=== PATIENT | male | born 1960 | race Caucasian/White ===

== ENCOUNTER 2022-02-26 08:23 | Day surgery (SDC) | payer MEDICARE, MEDICAID, SELFPAY ==
[2022-02-26] VITALS (9 sets, daily range): BP systolic 125–159; BP diastolic 58–98; PULSE 50–71; RESP 12–18; TEMP 36.1–36.9; O2SAT 95–99; BMI 22.3
[2022-02-26] MEDS: Lactated Ringers 1,000 ML 80 ML IV (09:50)
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
--- NOTE | 2022-02-26 11:14 | W.PM.DSUDISC ---
Discharge Plan Disposition Patient Disposition: HOME Condition: Good Discharge Details Reason For Visit: septoturbinatoplasty Attending Provider: Biju Torres Primary Care Provider: SOPHIA GUSTAFSON Home Meds and New Rx's Prescriptions: New cephalexin 500 mg capsule 500 mg PO TID Qty: 15 0RF No Action tamsulosin [Flomax] 0.4 mg capsule 0.4 mg PO QHS gabapentin 300 mg capsule 300 mg PO QHS Rx Instructions: Take 1 to 3 capsules by mouth every night. fluorouracil 5 % cream 1 applic topical BID losartan 50 mg tablet 50 mg PO DAILY tqczvkysgt-pjofskzxgdkxe-jgqx [Fioricet] 50-300-40 mg capsule 1 cap PO Q4H PRN azelastine-fluticasone [Dymista] 137-50 mcg/spray spray,non-aerosol 1 spray intranasal BID Rx Instructions: administer into each nostril tizanidine 4 mg capsule 4 mg PO BID PRN Discharge Instructions Additional Instructions: My cell phone number is [phone] should there be any concerns or problems Stand Alone Forms: [facility] Referrals: Biju Torres MD [ [facility] STAFF PHYSICIAN] - ( of this week, please call for appointment prior to patient's departure) Diet:: As Tolerated
[2022-02-26] MEDS: ceFAZolin 2 GM/50 ML BAG IVPB (11:25)
[2022-02-26] MEDS: Cocaine Nasal 4% 4 ML BTL (11:40)
--- NOTE | 2022-02-26 12:03 | NASSEP_PTH ---
PATIENT: Geraldo Hennessy LOC: [facility] U#:[id number] AGE/SX: 61/M ROOM: RE02/26/[address]: Biju Torres MD : 1960 BED: DIS: 02/26/2022 SPEC #: [id number] RECD: 02/26/22 13:29 STATUS: TOMAS REQ #: [id number] EUSEBIO: 02/26/22 12:[address]: Biju Torres DEPT: Surgical Specimen RECD BY: Paula Avendano ENTERED: 02/26/22 13:30 SP TYPE: NASSEP OTHR DR: SOPHIA GUSTAFSON NP Tissues: 1 - NASAL SEPTUM Procedures: GROSS LEVEL 1 Comments: [id number]
[2022-02-26] MEDS: Lidocaine 1.5 % Pres-Free W/EPI 1/200,000 30 ML VIAL (12:10)
[2022-02-26] MEDS: Bacitracin 30 GM TUBE (12:11)
--- NOTE | 2022-02-26 12:16 | W.PM.OP ---
Operative Note Operative Note DATE OF PROCEDURE: 02/26/22 PRE-OP DIAGNOSIS: Chronic nasal obstruction, DNS, inferior turbinate hypertrophy POST-OP DIAGNOSIS: same PROCEDURE: Septoplasty, bilateral inferior turbinate reduction using cautery SURGEON: Biju Torres ANESTHESIA TYPE: General LMA/ETT Refer to Anesthesia Record ESTIMATED BLOOD LOSS: 25 PATHOLOGY: other (Septal cartilage) COMPLICATIONS: None Patient was transported to: PACU Patient's condition: stable Implants: Thayer splints Indications: The patient has had chronic nasal obstruction that is medically recalcitrant. Preoperative exam revealed a massively deviated nasal septum anteriorly resulting in near-total obstruction of the left nasal vault. He had inferior turbinate hypertrophy. Options were explained to the patient regarding further management. He elected to undergo the above procedure. Risks and benefits as well as the operative and postoperative courses were detailed. Preoperative H&P was reviewed and no changes were noted. Consent was reviewed Findings: Deviated nasal septum confined to the cartilaginous septum, mucosal and submucosal inferior turbinate hypertrophy, Procedure Description: After obtaining an adequate level of general endotracheal anesthesia the patient was positioned in a supine position and prepped and draped in appropriate fashion. 1.5% lidocaine with 1/200,000 epinephrine was injected the septum in the submucosal plane bilaterally. Cocaine soaked nasal pledgets were then placed along the inferior turbinates bilaterally. 5 minutes was allowed to elapse and then a left-sided hemitransfixion incision was made. Submucoperichondrial planes were developed along the left as well as subperiosteal planes. A [place] knife was then used to penetrate the quadrangular cartilage anteriorly leaving a strong dorsal and columellar strut. Submucoperichondrial planes were then developed on the opposite side revealing that the deviation appeared to be limited to the anterior septum. As such the subperiosteal planes were not developed along the opposite side. A swivel knife was used to remove the deviated quadrangular cartilage and then a small remnant of quadrangular cartilage along the floor was removed carefully taking care to avoid trauma to the mucosa along the septum. Once been removed, the septum was found to be nicely medialized with no significant residual deviation. The Bailey elevator could be passed freely through both nostrils into the nasopharynx. Because the inferior turbinates appear to have a purely mucosal hypertrophy, the decision was made to cauterize the inferior third of the turbinates bilaterally. This resulted in further improvement of the nasal airway bilaterally. The Bailey elevator was used to lateralize the residual turbinate bilaterally. The nasal tip was stable. As such, a 4-0 chromic was used to approximate the edges of the hemitransfixion incision and a small drain hole was made in the left-sided posterior mucosa to allow any blood to escape. Thayer splints were sutured into place using a 2-0 Prolene suture. Care was taken not to tighten the septum suture too much. Merocel packs were placed along the inferior turbinates and insufflated. The patient was then awakened and extubated by anesthesia and the packs were removed. The patient was then transported to recovery room in stable condition. I was present throughout the entire case.
[2022-02-26] MEDS: fentaNYL 100 MCG/2 ML VIAL IVP (12:47)
[2022-02-26] MEDS: Ibuprofen 600 MG TAB PO (13:34)
--- NOTE | 2022-02-26 15:17 | W.ANESPOSTOP ---
Postoperative Evaluation Date, Time and Location Date Performed: 02/26/22 Time Performed: 14:15 Patient Location: Day Surgery Unit Vital Signs Most Recent Imported Vital Signs: Most Recent Vital Signs Temp Pulse Resp BP Pulse Ox 36.1 C L 51 L 18 141/97 H 96 02/26/22 13:25 02/26/22 13:40 02/26/22 13:40 02/26/22 13:40 02/26/22 13:40 Pain Score Most Recent Pain Score: Most Recent Pain Score Pain Level 7 02/26/22 13:40 Assessment Mental Status: Awake (Alert & Oriented to Patient Baseline) Airway and Respiratory Function: Patent airway with normal (patient baseline) respiratory exam Cardiovascular Function: Hemodynamically Stable Hydration Status: Adequately Hydrated Nausea & Vomiting: No Nausea or Vomiting Pain: Pain is tolerable per patient Peripheral Nerve Block: Patient did not receive a nerve block
== END 2022-02-26 14:48 | disposition home or self-care (01) ==
PROVIDERS: PCP Nurse Practitioner Family; Visit Provider Otolaryngology
PROC: (CPT 30520; principal; 2022-02-26 11:00)
DX: J34.2 Deviated nasal septum (principal); I10 Essential (primary) hypertension; R51.9 Headache, unspecified; J34.3 Hypertrophy of nasal turbinates
CPT/HCPCS: 30520; 30801; 88300; J0690; J1100; J2405; J2704; J3010

== ENCOUNTER 2022-06-04 08:02 | Day surgery (SDC) | payer MEDICARE, MEDICAID, SELFPAY ==
[2022-06-04] VITALS (8 sets, daily range): BP systolic 98–158; BP diastolic 64–99; PULSE 60–81; RESP 14–18; TEMP 36.2–36.7; O2SAT 95–98; BMI 22.2
[2022-06-04] MEDS: Lactated Ringers 1,000 ML 80 ML IV (08:55)
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
--- NOTE | 2022-06-04 09:50 | PDOC.DSDIS_ITS ---
Date of service: 06/04/22 Time of Service: 09:51 Discharge Plan Disposition Patient Disposition: Home Condition: Good Discharge Details Reason For Visit: Microlaryngoscopy with biopsy Attending Provider: Biju Torres Primary Care Provider: SOPHIA GUSTAFSON Home Meds and New Rx's Prescriptions: New omeprazole 20 mg capsule,delayed release(DR/EC) 20 mg PO DAILY Qty: 14 0RF No Action gabapentin 300 mg capsule 300 mg PO QHS Rx Instructions: Take 1 to 3 capsules by mouth every night. fluorouracil 5 % cream 1 applic topical BID losartan 50 mg tablet 50 mg PO DAILY azelastine-fluticasone [Dymista] 137-50 mcg/spray spray,non-aerosol 1 spray intranasal BID Rx Instructions: administer into each nostril rosuvastatin 5 mg tablet 5 mg PO HS tamsulosin [Flomax] 0.4 mg capsule 0.8 mg PO QHS Discharge Instructions Additional Instructions: No smoking Avoid whispering, shouting, or excessive voice use. Avoid clearing your throat Take Prilosec as directed Ibuprofen or/and Tylenol for pain control My cell phone number is [phone]. Please call with any questions or concerns. If you are unable to reach me and you feel this is an emergency, please proceed to the emergency room Referrals: Biju Torres MD [ [facility] STAFF PHYSICIAN] - Activity:: Avoid vocal strain, maintain good hydration Diet:: As Tolerated
--- NOTE | 2022-06-04 10:48 | VOCCOR_PTH ---
PATIENT: Geraldo Hennessy LOC: [facility] U#:[id number] AGE/SX: 61/M ROOM: RE06/04/[address]: Biju Torres MD : 1960 BED: DIS: 06/04/2022 SPEC #: [id number] RECD: 06/04/22 12:49 STATUS: TOMAS REQ #: [id number] EUSEBIO: 06/04/22 10:[address]: Biju Torres DEPT: Surgical Specimen RECD BY: Paula Avendano ENTERED: 06/04/22 12:51 SP TYPE: VOCCOR OTHR DR: SOPHIA GUSTAFSON NP Tissues: 1 - VOCAL CORD Procedures: GROSS AND MICRO LEVEL 4 Comments: [id number]
--- NOTE | 2022-06-04 10:51 | W.PM.OP ---
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 This has failed to respond to maximal medical therapy. Options were explained to the patient regarding further management. He elected to undergo the above procedure. Consent was filled and signed prior to surgery. Findings: Right true vocal cord is unremarkable. Left true vocal cord reveals a small area of leukoplakia that under the microscope appears to be more scar tissue than anything else. This is mid cord and on the medial aspect. No other lesions are noted. Procedure Description: The patient was positioned in a supine position and prepped and draped in appropriate fashion. A dental guard was placed along the upper dentition to protect the dentition and then after obtaining an adequate level of general endotracheal anesthesia a rigid laryngoscope was advanced into the oral cavity, into the oropharynx, into the laryngeal inlet, and to the level at which time the vocal cords could be identified and examined. The operating microscope was then moved into position using a 400 mm lens. Using the operating microscope, the left and right cords were examined revealing no friable tissues, and no discrete masses, but there did appear to be an area of scar tissue along the left medial vocal cord. This was mid cord, and measured approximately 2 mm x 2 mm. Upgoingcup forceps were used to take a small biopsy taking care to limit the biopsy to the mucosa. Bleeding was minimal and self-limited. Specimen was placed in formalin and sent to pathology. After ensuring adequate hemostasis, and no other masses present or present, the laryngoscope was relaxed of suspension, and removed. Dentition was checked revealing no damage to the dentition or to the lips. The patient was then awakened and by anesthesia and taken to recovery room in stable condition. I was present throughout the entire case
--- NOTE | 2022-06-04 11:39 | W.ANESPOSTOP ---
Postoperative Evaluation Date, Time and Location Date Performed: 06/04/22 Time Performed: 11:39 Patient Location: Day Surgery Unit Vital Signs Most Recent Imported Vital Signs: Most Recent Vital Signs Temp Pulse Resp BP Pulse Ox 36.5 C 74 18 126/90 95 06/04/22 11:25 06/04/22 11:35 06/04/22 11:35 06/04/22 11:35 06/04/22 11:35 Pain Score Most Recent Pain Score: Most Recent Pain Score Pain Level 0 06/04/22 11:35 Assessment Mental Status: Awake (Alert & Oriented to Patient Baseline) Airway and Respiratory Function: Patent airway with normal (patient baseline) respiratory exam Cardiovascular Function: Hemodynamically Stable Hydration Status: Adequately Hydrated Nausea & Vomiting: No Nausea or Vomiting Pain: Pt. Denies Any Pain Peripheral Nerve Block: Patient did not receive a nerve block Postoperative Comments:: Patient reports itchy sensation in throat. Denies pain, denies nausea. Denies questions for anesthesia.
== END 2022-06-04 12:36 | disposition home or self-care (01) ==
PROVIDERS: PCP Nurse Practitioner Family; Visit Provider Otolaryngology
PROC: 0CJS8ZZ Inspection of Larynx, Via Natural or Artificial Opening Endoscopic (ICD-10-PCS; CPT 31575; principal; 2022-06-04 09:15)
DX: J38.3 Other diseases of vocal cords (principal); R49.8 Other voice and resonance disorders; R09.81 Nasal congestion
CPT/HCPCS: 31536; 88305; J1100; J2250; J2405; J2704; J3010

== ENCOUNTER → 2022-06-06 13:07 | Outpatient (BNVA) | payer MEDICARE, MEDICAID, SELFPAY | PROVIDERS: PCP Nurse Practitioner Family; Referring Provider Nurse Practitioner Family; Visit Provider Nurse Practitioner Adult Health | DX: G47.00 Insomnia, unspecified (principal); Z87.820 Personal history of traumatic brain injury; F41.9 Anxiety disorder, unspecified; I10 Essential (primary) hypertension; Z87.891 Personal history of nicotine dependence; M54.2 Cervicalgia; G89.29 Other chronic pain; G43.109 Migraine with aura, not intractable, without status migrainosus | CPT/HCPCS: 99204; 99214 ==

== ENCOUNTER → 2022-06-12 10:53 | Outpatient (BNVA) | payer MEDICARE, MEDICAID, SELFPAY | PROVIDERS: PCP Nurse Practitioner Family; Referring Provider Nurse Practitioner Family; Visit Provider Nurse Practitioner Gerontology | DX: R39.89 Other symptoms and signs involving the genitourinary system (principal); R32 Unspecified urinary incontinence | CPT/HCPCS: 51798; 81003; 99214 ==

== ENCOUNTER → 2022-08-07 10:54 | Outpatient (BNVA) | payer MEDICARE, MEDICAID, SELFPAY | PROVIDERS: PCP Nurse Practitioner Family; Referring Provider Nurse Practitioner Family; Visit Provider Nurse Practitioner Adult Health | DX: G43.009 Migraine without aura, not intractable, without status migrainosus (principal); G47.00 Insomnia, unspecified; G89.29 Other chronic pain; Z87.820 Personal history of traumatic brain injury | CPT/HCPCS: 99213; 99214 ==

== ENCOUNTER 2022-08-31 00:27 | Outpatient (CLI) | payer MEDICARE, MEDICAID, SELFPAY ==
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
--- NOTE | 2022-08-31 07:30 | DI.MRI_ITS ---
Exam(s) MR CERVICAL SPINE WO EXAM: MR CERVICAL SPINE WO CLINICAL HISTORY: neck pain w/ rad down the right arm, S/p surg X 2,cervical radicular pain, TECHNIQUE: Multiplanar multisequence MRI of the cervical spine was performed without intravenous con trast. COMPARISON: No exams were available for comparison FINDINGS: BONES: Vertebral body heights are maintained. Alignment is normal. Bone marrow signal intensity is wi thin normal limits. CERVICAL CORD: Craniovertebral junction is unremarkable. The cervical cord is normal size and signal intensity. SOFT TISSUES: Unremarkable. C2-3: No disc herniation or bulge is identified. No evidence of neural foraminal narrowing. No signi ficant central canal stenosis C3-4: No disc herniation or bulge is identified. No evidence of neural foraminal narrowing. No signif icant central canal stenosis C4-5: Mild loss of disc height. Endplate osteophytes eccentric toward the right. Mild rightneural f oraminal narrowing. Moderate left no significant central canal stenosis C5-6: Bstl-kg-ybyljyhp loss of disc height. Disc osteophytes causing moderate right neural foraminal encroachment. Moderate left neural foraminal narrowing. Mild central canal stenosis C6-7: Moderate loss of disc height. Endplate osteophytes eccentric toward the right severe right madhu ral foraminal narrowing. Moderate left neural foraminal narrowing no significant central canal steno sis C7-T1: No disc herniation or bulge is identified. No evidence of neural foraminal narrowing. No signi ficant central canal stenosis IMPRESSION: Degenerative disc changes from C4-5 through C6-7. Bilateral neural foraminal narrowing, greatest at C6-7 on the right. DATA REPOSITORY:
== END 2022-08-31 00:47 ==
LOC: DI 00:31
PROVIDERS: PCP Nurse Practitioner Family; Visit Provider Preventive Medicine Occupational Medicine
DX: M54.12 Radiculopathy, cervical region (principal); M25.559 Pain in unspecified hip; M18.0 Bilateral primary osteoarthritis of first carpometacarpal joints
CPT/HCPCS: 73521; 72141

== ENCOUNTER 2022-10-02 17:47 | Outpatient (REF) | payer MEDICARE, MEDICAID, SELFPAY ==
[2022-10-02 17:24] LABS: Abs Immature Grans 0.06 10^3/uL (0.0-0.06); Absolute Basophil Count 0.03 10^3/uL (0.0-0.2); Absolute Eosinophil Count 0.15 10^3/uL (0.0-0.7); Absolute Lymphocyte Count 1.74 10^3/uL (1.2-3.4); Absolute Monocyte Count 0.49 10^3/uL (0.1-0.8); Absolute Neutrophil Count 4.67 10^3/uL (1.2-6.7); Basophils % 0.4; Eosinophils % 2.1; HCT 43.1 % (40.0-50.0); HGB 14.9 g/dL (13.5-17.5); Immature Grans % 0.8; Lymphocytes % 24.4; MCHC 34.6 % (32.0-36.0); MCV 93 fL (80-95); MPV 9.3 fL (8.0-11.0); Monocytes % 6.9; Neutrophils % 65.4; Platelet Count 306 10^3/uL (130-400); RBC 4.65 10^6/uL (4.36-5.78); RDW 12.7 % (11.8-14.1); RDW-SD 43.4 fL; WBC 7.14 10^3/uL (4.4-10.8)
[2022-10-02 17:30] LABS: ALT 30 U/L (16-63); AST 25 U/L (15-37); Albumin 4.1 g/dL (3.4-5.0); Alkaline Phosphatase 88 U/L (46-116); Anion Gap 8.5 mmol/L (3-11); BUN 18 mg/dL (7-18); Bilirubin, Total 0.3 mg/dL (0.2-1.0); CO2 27.5 mmol/L (21.0-32.0); CREATININE 1.1 mg/dL (0.70-1.30); Calcium 9.1 mg/dL (8.5-10.1); Calculated LDL 90 mg/dL (<100); Chloride 104 mmol/L (98-107); Cholesterol 150 mg/dL (<200); Estimated GFR 77.33 (mL/min/1.73m2); Glucose 107 mg/dL (74-106); HDL Cholesterol 53 mg/dL (40-60); Potassium 4.2 mmol/L (3.5-5.1); Sodium 140 mmol/L (136-145); Total Protein 7.9 g/dL (6.4-8.2); Triglyceride 35 mg/dL (<150)
== END 2022-10-02 17:48 | disposition home or self-care (01) ==
LOC: NCHCN 17:47
PROVIDERS: PCP Nurse Practitioner Family; Visit Provider Nurse Practitioner Family
DX: I10 Essential (primary) hypertension (principal); E78.5 Hyperlipidemia, unspecified; G47.20 Circadian rhythm sleep disorder, unspecified type
CPT/HCPCS: 80053; 80061; 85025

== ENCOUNTER 2022-10-10 10:50 | Outpatient (CLI) | payer MEDICARE, MEDICAID, SELFPAY ==
--- NOTE | 2022-10-10 06:00 | DI.RAD_ITS ---
Exam(s) XR PAIN CLINIC SACRIOILIAC 2V EXAM: XR PAIN CLINIC SACRIOILIAC 2V CLINICAL HISTORY: Dx: Sacroiliac Joint Dysfunction TECHNIQUE: 2D and realtime digital imaging was performed. Radiologist not present. CONTRAST MATERIAL: None. COMPARISON: No exams were available for comparison FINDINGS: Fluoroscopy was provided for pain management therapy. Please refer to procedure report or details. Radiation Exposure Index: Ka,r=0.73 mGy IMPRESSION: As above. RADIATION DOSE DELIVERED:
[2022-10-10 11:04] VITALS: BP 142/92; PULSE 67; RESP 20; TEMP 37; O2SAT 97
[2022-10-10 11:44] VITALS: BP 134/92; PULSE 61; RESP 18; O2SAT 97
[2022-10-10] MEDS: methylPREDNISolone ACETATE 80 MG/ML VIAL IJ (11:54)
[2022-10-10] MEDS: Omnipaque 240 MG/ML 50 ML BTL IJ (11:54)
--- NOTE | 2022-10-10 15:03 | PDOC.PAIN_ITS ---
Date of service: 10/10/22 Time of Service: 11:45 Pain Managment Procedure Note Procedure Note Procedure Note: INTRA-ARTICULAR SI JOINT INJECTION Geraldo Hennessy has been referred to the [facility] for intra- articular SI joint injection. COMMENTS: I previously evaluated him in the office. Pre-procedure pain VAS was 6/10. Dx: Sacroiliac joint dysfunction Patient was interviewed and the medical record reviewed. There were no medical, pharmacologic, radiographic or other structural contraindications to attempting fluoroscopically guided intra-articular SI joint injection. Risks and expected side effects as well as potential benefit of the procedure were reviewed and voiced concerns addressed. The printed consent form was signed and witnessed. Standard time-out procedure was performed. Patient was placed in the prone position on the fluoroscopy table and automated blood pressure cuff and pulse oximeter applied. The skin entry point for approaching the left SI joint was identified under the most advantageous fluoroscopic view and marked. Following thorough Chlorhexadine preparation of the skin and draping and 1% lidocaine infiltration of the skin entry point and subcutaneous tissues, a 22 gauge spinal needle was placed under fluoroscopic guidance into the left SI joint was identified under the most advantageous fluoroscopic view and marked. Intra-articular placement was confirmed by a clear arthrogram resulting from the injection of 0.25ml Omnipaque 240, 40mg Depomedrol, followed by 1ml 1% lidocaine were injected intra-articularily with an initial reproduction of a significant component of the usual pain. Vital signs were stable throughout the procedure and were as recorded in the docflowsheet by the nursing staff. If given, dosages of intravenous drugs for anxiolysis and analgesia were documented in MAR. Follow up plans and appointments were discussed with the patient. Post procedure instruction was given as documented in nursing documentation and having met discharge criteria, and was discharged from the Pain Management Center. COMMENTS: Post-procedure pain VAS was 3/10. His groin pain was still present. Ezra Appiha DO, MPH [facility]-Pain Management [facility]-Center for Pain Management CC: SOPHIA GUSTAFSON NP
== END 2022-10-10 10:51 | disposition home or self-care (01) ==
PROVIDERS: PCP Nurse Practitioner Family; Visit Provider Preventive Medicine Occupational Medicine
DX: M46.1 Sacroiliitis, not elsewhere classified (principal); M54.50 Low back pain, unspecified
CPT/HCPCS: 27096; 72200; J1040; Q9967

== ENCOUNTER → 2022-11-06 10:21 | Outpatient (BNVA) | payer MEDICARE, MEDICAID, SELFPAY | PROVIDERS: PCP Nurse Practitioner Family; Referring Provider Nurse Practitioner Family; Visit Provider Nurse Practitioner Gerontology | DX: R33.9 Retention of urine, unspecified (principal) | CPT/HCPCS: 51798; 99213 ==

== ENCOUNTER → 2022-11-06 12:55 | Outpatient (BNVA) | payer MEDICARE, MEDICAID, SELFPAY | PROVIDERS: PCP Nurse Practitioner Family; Visit Provider Nurse Practitioner Adult Health | DX: G43.009 Migraine without aura, not intractable, without status migrainosus (principal); Z87.828 Personal history of other (healed) physical injury and trauma; G47.00 Insomnia, unspecified; F39 Unspecified mood [affective] disorder | CPT/HCPCS: 99213 ==

== ENCOUNTER 2022-12-12 12:02 | Outpatient (REF) | payer MEDICARE, MEDICAID, SELFPAY ==
[2022-12-12 14:55] LABS: Abs Immature Grans 0.04 10^3/uL (0.0-0.06); Absolute Basophil Count 0.04 10^3/uL (0.0-0.2); Absolute Eosinophil Count 0.12 10^3/uL (0.0-0.7); Absolute Lymphocyte Count 1.99 10^3/uL (1.2-3.4); Absolute Neutrophil Count 4.26 10^3/uL (1.2-6.7); Basophils % 0.6; Eosinophils % 1.8; HCT 45.9 % (40.0-50.0); HGB 15.6 g/dL (13.5-17.5); Immature Grans % 0.6; Lymphocytes % 29.1; MCH 31.7 pg (27.0-33.0); MCV 93 fL (80-95); MPV 9.4 fL (8.0-11.0); Monocytes % 5.8; Neutrophils % 62.1; Platelet Count 313 10^3/uL (130-400); RBC 4.92 10^6/uL (4.36-5.78); RDW 12.5 % (11.8-14.1); RDW-SD 43.1 fL; WBC 6.85 10^3/uL (4.4-10.8)
[2022-12-12 15:20] LABS: NT-proBNP 49 pg/mL (<300)
== END 2022-12-12 12:03 | disposition home or self-care (01) ==
LOC: NCHCN 12:02
PROVIDERS: PCP Nurse Practitioner Family; Visit Provider Family Medicine
DX: R06.02 Shortness of breath (principal)
CPT/HCPCS: 83880; 85025

== ENCOUNTER 2022-12-14 00:54 | Outpatient (CLI) | payer MEDICARE, MEDICAID, SELFPAY ==
--- NOTE | 2022-12-14 09:09 | DI.RAD_ITS ---
Exam(s) XR CHEST 2V PA LATERAL EXAM: XR CHEST 2V PA LATERAL CLINICAL HISTORY: SOB, R06.02 TECHNIQUE: 2D digital imaging was performed of the chest. Two images were obtained. PA and lateral views were obtained. COMPARISON: No exams were available for comparison FINDINGS: MEDIASTINUM: Normal. HEART: Normal. PULMONARY VASCULATURE: Normal. LUNGS: The lungs are hyperinflated suggesting underlying COPD. No focal consolidating infiltrates ar e seen. Mild chronic interstitial disease is present. PLEURAL SPACE: No pleural effusion or pneumothorax. BONE:Within normal limits for the patient's age. Postsurgical changes are seen in the left shoulder. There is an intramedullary calcific lesion in the proximal right humerus. It is most consistent wi th a benign lesion such as an enchondroma. OTHER FINDINGS:Normal. IMPRESSION: 1. No acute pulmonary findings. 2. Findings suggesting COPD and chronic interstitial disease. DATA REPOSITORY: RADIATION DOSE DELIVERED:
== END 2022-12-14 01:14 ==
LOC: DI 00:55
PROVIDERS: PCP Nurse Practitioner Family; Visit Provider Family Medicine
DX: R06.2 Wheezing (principal); J84.9 Interstitial pulmonary disease, unspecified; J44.9 Chronic obstructive pulmonary disease, unspecified
CPT/HCPCS: 71046

== ENCOUNTER 2022-12-24 03:03 | Outpatient (CLI) | payer MEDICARE, MEDICAID, SELFPAY ==
[2022-12-24] MEDS: Albuterol HFA 18 GM 200 PUFF INH IH (09:03)
[2022-12-24] MEDS: Inhaler, Assist Device 1 EACH MC (09:03)
--- NOTE | 2022-12-24 11:04 | W.PFT ---
Date of service: 12/24/22 Time of Service: 08:03 Pulmonary Function Test Result Indications: Dyspnea Interpretation Spirometry: There is no airflow limitation. No significant bronchodilator response. Lung Volumes: There is air trapping. Diffusion Capacity: Normal diffusion Airway Pressure: Normal airway pressure Impression There is air trapping but no airflow obstruction. This can be seen in asthma or emphysema. Clinical Correlation therefore is recommended.
== END 2022-12-24 03:04 | disposition home or self-care (01) ==
LOC: RT 03:03
PROVIDERS: PCP Nurse Practitioner Family; Visit Provider Family Medicine
DX: R06.02 Shortness of breath (principal)
CPT/HCPCS: 94060; 94726; 94729

== ENCOUNTER → 2022-12-27 00:32 | Outpatient (CLI) | payer MEDICARE, MEDICAID, SELFPAY ==
--- NOTE | 2022-12-27 06:00 | DI.MRI_ITS ---
Exam(s) MR PELVIS WO EXAM: MR PELVIS WO CLINICAL HISTORY: Left SI joint area pain after trauma,m53.3,si joint dysfunction TECHNIQUE: Multiplanar multisequence MRI of Pelvis was performed COMPARISON: CR XR HIP PELVIS ADULT BL from 08/31/2022 FINDINGS: Bones: There is no fracture. Mild marrow edema seen in the inferior aspect of the right iliac bone adjacent to the sacroiliac joint. Otherwise there is normal marrow signal. No suspicious bone marro w lesions. There are degenerative endplate signal changes seen at L4-5 and L5-S1. The SI joints and symphysis pubis are otherwise well maintained. Musculotendinous structures: Musculotendinous structures demonstrate no abnormality. Intrapelvic str uctures demonstrate no significant abnormality. IMPRESSION: 1. There is no evidence of an acute fracture. 2. Mild marrow edema seen at the inferior aspect of the right iliac bone adjacent to the sacroiliac j oint. This is nonspecific. This may be degenerative in nature. Contusion cannot be excluded. DATA REPOSITORY:
== END ==
PROVIDERS: PCP Nurse Practitioner Family; Visit Provider Preventive Medicine Occupational Medicine
DX: M53.3 Sacrococcygeal disorders, not elsewhere classified (principal)
CPT/HCPCS: 72195

== ENCOUNTER → 2023-01-23 10:03 | Outpatient (BNVA) | payer MEDICARE, MEDICAID, SELFPAY | PROVIDERS: PCP Nurse Practitioner Family; Referring Provider Nurse Practitioner Family; Visit Provider Nurse Practitioner Gerontology ==

== ENCOUNTER → 2023-01-25 00:46 | Outpatient (CLI) | payer MEDICARE, MEDICAID, SELFPAY ==
--- NOTE | 2023-01-25 07:55 | DI.CTLCSR_ITS ---
Exam(s) CT CHEST LUNG CANCER SCREEN EXAM: CT CHEST LUNG CANCER SCREEN CLINICAL HISTORY: HX TOBACCO USE Z87.891, SCREENING FOR LUNG CANCER TECHNIQUE: Imaging Protocol: Axial computed tomography images with coronal and sagittal reformatted images were created and reviewed COMPARISON: CR XR CHEST 2V PA LATERAL from 12/14/2022 FINDINGS: Tracheobronchial tree: Patent where visualized. Pulmonary parenchyma: Emphysematous changes are present in the lungs. No architectural distortion. Lung Nodules: There is a 5 mm nodule in the periphery of the left lower lobe. Mediastinum and Emilia: No dominant adenopathy or fluid collection. The esophagus is unremarkable. Thyroid gland: Unremarkable. Lymph nodes: Unremarkable. Pleura: No effusion or pneumothorax. Heart: The heart is not dilated. Mild coronary artery calcification is present. No pericardial effus ion. Aorta: Thoracic aorta non-dilated.Atherosclerosis. Upper abdomen: Unremarkable. Soft Tissues: Unremarkable. Bones: Within normal limits. Postsurgical changes are seen in the left scapula. IMPRESSION: 5 mm left lower lobe pulmonary nodule. Lung RADS Cat 3 - Probably Benign: Probably benign finding(s) - short term follow-up suggested; inclu de nodules with a low likelihood of becoming a clinically active cancer. Lung-RADS 1.0 CATEGORIES: Category 0 - Prior chest CT exam(s) being located for comparison. Category 1 - Annual screening in 12 months. No nodules or definitely benign nodules. Category 2 - Annual screening in 12 months. Benign appearance. Nodules with low likelihood of becomin g active cancer. Category 3 - 6-month follow-up. Probably benign. Short-term follow-up suggested. Nodules with low lik elihood of becoming active cancer. Category 4A - 3-month follow-up and CT/PET if >8 mm in size. Suspicious finding. Findings which requi re additional testing. Category 4B - Findings which require additional testing and tissue sampling. Suspicious finding. Category 4X - Category 3 or 4 nodules with additional features or imaging findings that increases the suspicion of malignancy. Modifier S- Potentially clinically significant finding. (Non lung cancer) RADIATION DOSE DELIVERED: 78.55mGy.cm Total DLP 78.55mGy.cmTotal DLP DATA REPOSITORY: All CT scans at this facility are submitted to the National Radiology Data Registry (NRDR) Dose Index Registry (DIR) with the [employer] (ACR). RADIATION OPTIMIZATION: All CT scans at this facility use at least one of these dose optimization te chniques: automated exposure control; mA and/or kV adjustment per patient size (includes targeted exa ms where dose is matched to clinical indication); or iterative reconstruction.
== END ==
PROVIDERS: PCP Nurse Practitioner Family; Visit Provider Nurse Practitioner Family
DX: Z87.891 Personal history of nicotine dependence (principal); Z12.2 Encounter for screening for malignant neoplasm of respiratory organs; R91.1 Solitary pulmonary nodule
CPT/HCPCS: 71271

== ENCOUNTER → 2023-02-05 09:58 | Outpatient (BNVA) | payer MEDICARE, MEDICAID, SELFPAY | PROVIDERS: PCP Nurse Practitioner Family; Visit Provider Nurse Practitioner Adult Health | DX: R51.9 Headache, unspecified (principal); G89.29 Other chronic pain | CPT/HCPCS: 64405 ==

== ENCOUNTER → 2023-02-13 08:36 | Outpatient (BNVA) | payer MEDICARE, MEDICAID, SELFPAY | PROVIDERS: PCP Nurse Practitioner Family; Referring Provider Nurse Practitioner Family; Visit Provider Surgery | DX: R19.8 Other specified symptoms and signs involving the digestive system and abdomen (principal) | CPT/HCPCS: 99213 ==

== ENCOUNTER 2023-02-22 02:01 | Outpatient (CLI) | payer MEDICARE, MEDICAID, SELFPAY ==
[2023-02-22 12:33] LABS: Ferritin 140 ng/mL (26-388)
== END 2023-02-22 02:02 | disposition home or self-care (01) ==
LOC: LOS 02:01
PROVIDERS: PCP Nurse Practitioner Family; Visit Provider Nurse Practitioner
DX: M25.562 Pain in left knee (principal); G47.33 Obstructive sleep apnea (adult) (pediatric); G47.00 Insomnia, unspecified; G25.81 Restless legs syndrome
CPT/HCPCS: 36415; 82728

== ENCOUNTER 2023-04-17 16:12 | Outpatient (CLI) | payer MEDICARE, MEDICAID, SELFPAY ==
[2023-04-17 16:25] VITALS: BP 121/79; PULSE 69; RESP 20; TEMP 36.3; O2SAT 97
[2023-04-17 17:21] VITALS: PULSE 65; O2SAT 98
[2023-04-17] MEDS: methylPREDNISolone ACETATE 40 MG/ML VIAL IJ (17:29)
[2023-04-17] MEDS: Lidocaine 2% Pres-Free 5 ML VIAL IJ (17:29)
--- NOTE | 2023-04-17 19:50 | PDOC.PAIN_ITS ---
Date of service: 04/17/23 Time of Service: 17:00 US Guided Injections Type of Ultrasound Guided Injection: Left Piriformis Injection Pre-Procedural Evaluation No skin issues over the procedure site Referral Patient has been referred to the Pain Management Center for Left Piriformis Injection for a chief complaint of Left buttock pain radiating into the left posterior thigh Pre-Procedural Pain Score Pre-procedural pain score: 7/10 Reason for Exam Left buttock pain Patient Interview Patient was interviewed and medical record reviewed: Yes There were no contraindications to performing an US guided procedure. Risks,expected side effects, potential benefits were reviewed. The patient consent form was signed and witnessed. Standard time out procedure was performed. Patient Safety No skin issues over the injection site Procedure Description No sedation given for procedure Patient was placed in the prone position and the following Pulse Ox applied. Pre-Procedure ultrasound scanning performed using a Linear 9 MHz probe Site Preparation Chloroprep Local Anesthesia of Lidocaine 2% (5 cc). A 21 G 3.5 Pajunk ultrasound needle was placed under live US guidance using an in-plane approach to the target area. After visualization of the needle tip at the target area 40 mg Depo-Medrol 40mg per cc were used. Negative aspiration for blood. [place] were removed without difficulty. Ultrasound images were captured and stored. Patient Mental Status Patient was alert during procedure Vital Signs Vital signs were stable throughout the procedure and recorded by nursing. Follow Up/Discharge Follow up plans and appointments were discussed with patient. Post procedure instruction was given as documented in nursing documentation. Discharge criteria met and patient discharged from Pain Management Center: Yes Post Procedure Pain Post Procedure Pain: 0/10 Patient tolerated procedure well Procedure Outcome: Successful Comments: He did have some left leg weakness and tingling as expected. He was escorted to his ride's vehicle in a wheelchair and was able to transfer to the wheelchair and out of the wheelchair. Piriformis Injection Non US Guided Injections Procedure Description Patient was placed in the prone position Post Procedure Pain Post Procedure Pain: 0/10
== END 2023-04-17 16:13 | disposition home or self-care (01) ==
LOC: PC 16:12
PROVIDERS: PCP Nurse Practitioner Family; Visit Provider Preventive Medicine Occupational Medicine
DX: M54.59 Other low back pain (principal); G57.02 Lesion of sciatic nerve, left lower limb
CPT/HCPCS: 00123; 20552; 76942; J1030

== ENCOUNTER → 2023-06-12 08:36 | Outpatient (BNVA) | payer MEDICARE, MEDICAID, SELFPAY | PROVIDERS: PCP Nurse Practitioner Family; Referring Provider Nurse Practitioner Family; Visit Provider Nurse Practitioner Gerontology | DX: N40.1 Benign prostatic hyperplasia with lower urinary tract symptoms (principal); N39.43 Post-void dribbling | CPT/HCPCS: 51798; 99213 ==

== ENCOUNTER → 2023-07-23 00:50 | Outpatient (CLI) | payer MEDICARE, MEDICAID, SELFPAY ==
--- NOTE | 2023-07-23 | DI.CT_ITS ---
Exam(s) CT CHEST WO EXAM: CT CHEST WO CLINICAL HISTORY: F/U LUNG NODULE, R91.1, 6 MO F/U. TECHNIQUE: Imaging protocol: Axial computed tomography images were obtained and coronal and sagittal reformatted images were created and reviewed. COMPARISON: CT CT CHEST LUNG CANCER SCREEN from 01/25/2023 FINDINGS: Tracheobronchial tree: Patent where visualized. Pulmonary parenchyma: Paraseptal emphysematous changes are present. No architectural distortion. The re is a stable 5 mm nodule in the lateral aspect of the left lower lobe (series five image four forty nine). No new pulmonary nodules are present. No focal consolidating infiltrates are present. Mediastinum and Emilia: No dominant adenopathy or fluid collection. The esophagus is unremarkable. Thyroid gland: Unremarkable. Pleura: No effusion or pneumothorax. Heart: The heart is not dilated. Coronary artery calcifications and/or stents are present. No perica rdial effusion. Aorta: Thoracic aorta non-dilated. Atherosclerotic calcification is present. Upper abdomen: Unremarkable. Lymph nodes: Within normal limits. Soft tissues: Unremarkable. Bones:Within normal limits for the patient's age. IMPRESSION: Stable 5 mm pulmonary nodule. No new pulmonary nodules. Follow-up in 12 months is recommended for r e-evaluation. RADIATION DOSE DELIVERED: Total DLP Total DLP DATA REPOSITORY: All CT scans at this facility are submitted to the National Radiology Data Registry (NRDR) Dose Index Registry (DIR) with the [employer] (ACR). RADIATION OPTIMIZATION: All CT scans at this facility use at least one of these dose optimization te chniques: automated exposure control; mA and/or kV adjustment per patient size (includes targeted exa ms where dose is matched to clinical indication); or iterative reconstruction.
== END ==
PROVIDERS: PCP Nurse Practitioner Family; Visit Provider Nurse Practitioner Family
DX: R91.1 Solitary pulmonary nodule (principal)
CPT/HCPCS: 71250

== ENCOUNTER → 2023-07-25 09:58 | Outpatient (BNVA) | payer MEDICARE, MEDICAID, SELFPAY | PROVIDERS: PCP Nurse Practitioner Family; Visit Provider Nurse Practitioner Adult Health | DX: G43.109 Migraine with aura, not intractable, without status migrainosus (principal); G43.009 Migraine without aura, not intractable, without status migrainosus | CPT/HCPCS: 99214 ==

== ENCOUNTER → 2023-09-19 01:54 | Outpatient (CLI) | payer MEDICARE, MEDICAID, SELFPAY ==
--- NOTE | 2023-09-19 06:45 | DI.MRI_ITS ---
Exam(s) MR LUMBAR SPINE WO EXAM: MR LUMBAR SPINE WO CLINICAL HISTORY: Worsening pain radiating to left leg,LUMBAR RADICULITIS,M54.16. TECHNIQUE: Multiplanar multisequence MRI of the Lumbar spine was performed. COMPARISON: CR XR CHEST 2V PA LATERAL from 12/14/2022 FINDINGS: Bones: The last intervertebral disc space is designated the L5/S1 level for the numbering purpose of this ex amination. The vertebral body heights are well maintained. Alignment: Unremarkable. Marrow: Degenerative signal changes in the endplates at L4-5 and L5-S1.. Cord: The conus tip ends at the T12 level. It is of normal size and signal intensity. T12-L1: No focal disc herniation is present. No central spinal canal stenosis.No neural foraminal st enosis. L1-2:Mild loss of disc height. Mild concentric disc bulging and small endplate osteophytes. No foca l disc herniation is present. No central spinal canal stenosis.No neural foraminal stenosis. L2-3:Minimal disc bulging. No focal disc herniation is present. No central spinal canal stenosis.N o neural foraminal stenosis. L3-4: Minimal disc bulging.No focal disc herniation is present. No central spinal canal stenosis.Mi ld bilateral neural foraminal L4-5: Mild loss of disc height. Mild posterior disc bulging and small endplate osteophytes. Mild fa cet degenerative changes. No focal disc herniation is present. No central spinal canal stenosis.N o neural foraminal stenosis. L5-S1: Severe loss of disc height. Circumferentially projecting osteophytes. Facet degenerative rosa nges. Mild right and moderate left foraminal narrowing.No focal disc herniation is present. No cent ral spinal canal stenosis. The visualized SI joints and sacrum are unremarkable. Soft tissues: The paraspinal soft tissues are unremarkable. IMPRESSION: Multilevel degenerative disc changes, greatest at L5-S1 where there is bilateral neural foraminal macie rowing, left greater than right. DATA REPOSITORY:
== END ==
PROVIDERS: PCP Nurse Practitioner Family; Visit Provider Preventive Medicine Occupational Medicine
DX: M54.16 Radiculopathy, lumbar region (principal)
CPT/HCPCS: 72148

== ENCOUNTER → 2023-11-07 14:20 | Outpatient (BNVA) | payer MEDICARE, MEDICAID, SELFPAY | PROVIDERS: PCP Nurse Practitioner Family; Visit Provider Nurse Practitioner Adult Health | DX: G43.109 Migraine with aura, not intractable, without status migrainosus (principal); G43.009 Migraine without aura, not intractable, without status migrainosus | CPT/HCPCS: 99214 ==

== ENCOUNTER → 2023-12-05 01:32 | Outpatient (CLI) | payer MEDICARE, MEDICAID, SELFPAY ==
--- OUTSIDE RECORDS SUMMARY | 2023-12-05 01:40 | XMS_ITS | Encounter Summary ---
Author Organization [facility] Address [address] [place] [address] Care Team Providers Care County Attorney Name Role Phone FamiliaBianca DIE FORGER Primary Care Provider [phone] Reason for Visit * Reason Onset Date Comments New/Evolving Symptoms 08/16/2023 Question 08/16/2023 Encounter Details Date Type Department Care Team (Late st Contact Info) Description 08/16/2023 Telephone [facility] ENT- [address] [address] Marcelino Godinez MD [address] [facility], [address] [place] [address] New/Evolving Symptoms; Question Social History Tobacco Use Types Packs/Day Years Used Date Smoking Tobacco: Former Cigarettes Q uit: 2009 Smokeless Tobacco: Never Alcohol Use Standard Drinks/Week Comments Yes 0 (1 standard drink = 0.6 oz pur e alcohol) couple times a week Sex and Gender Information Value Date Recorded Sex Assigned at Not on file Gender Identity Male 04/19/2023 11:26 EST Sexual Orientation Not on file documented as of this encounter Miscellaneous Notes * Telephone Encounter - Roxann Damon RN - 08/16/2023 1332 EDT Detailed message left for the patient regarding Dr. Godinez response and recommendations. Asked him to call the ENT office with questions or concerns. * Telephone Encounter - Marcelino Godinez MD - 08/16/2023 1221 EDT I wouldn't expect these symptoms 2 weeks out from his vocal fold surgery with excellent healing in the office last week. He may have a URI, in which case, fluids, rest and NSAIDS are recommended. He may also be having GERD given the stomach complaints in which case 2 weeks of OTC prilosec might help. If not improving by early next week, let us know and we can get him seen. I agree that he needs to go to the local ED if having trouble breathing or continuing to cough up blood Marcelino Godinez MD * Telephone Encounter - Roxann Damon RN - 08/16/2023 1013 EDT Spoke with the patient he reports for the past couple of days his throat has been very sore. He knows he should not clear his throat but feels like he always needs to clear his throat. When clearing his throat he tastes blood and his stomach is upset. He has been using a lot of cough drops. His work has high voice demands. He does not think he is drinking enough water as he is busy at work. Suggested drinking plenty of cold water if possible. Asked the patient if he felt he needed to go to the ED, he does not at this time. Explained Dr. Godinez is in the OR. Will forward to Dr. Godinez * Telephone Encounter - Sujatha Grace - 08/16/2023 0904 EDT Patient calling to report throat is real sore and is tasting blood so guessing it's raw. Patient would like suggestions or something they can do or use for it. Please call patient to discuss. documented in this encounter Plan of Treatment Upcoming Encounters Date Type Department Care Team (Late st Contact Info) Description 01/02/2024 9:40 EDT Office Visit [facility] ENT- [address] [place] [address], [place] [address] Marcelino Godinez MD [address] [facility], [address] [place] [phone] documented as of this encounter Visit Diagnoses Not on filedocumented in this encounter Care Teams County Attorney Relationship Specialty Start Date End Date Bianca Barbosa, KALIA [address] [place] [address] PCP - General Family Medicine - Primary Care 01/18/22 documented as of this encounter
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
--- OUTSIDE RECORDS SUMMARY | 2023-12-05 01:40 | XMS_ITS | Encounter Summary ---
Author Organization [facility] Address [address] [place] [address] Care Team Providers Care Stars Analytical Lead Name Role Phone Bianca Barbosa INDUSTRIAL TWISTING MACHINE OPERATOR Primary Care Provider [phone] Reason for Visit * Auth/Cert (Routine) Specialty Diagnoses / Procedures Referred By Jame garnica Referred To Contact Diagnoses Vocal fold leukoplakia Procedures DE LARGSC EXC [place]&/STRPG CORDS/EPIGL MCRSCP/TLSCP MICROLARYNGOSCOPY, DIRECT, WITH VOCAL CORD LESION EXCISION Referral ID Status Reason Start Date Expiration Date Visits Re quested Visits Authorized [id number] 07/18/2023 07/17/2024 1 1 Encounter Details Date Type Department Care Team (Late st Contact Info) Description 07/31/2023 7:25 EDT - 07/31/2023 9:00 EDT Surgery [facility] OR [address] [place] [id number] Marcelino Godinez MD [address] [place] [address], [address] [place] [address] MICROLARYNGOSCOPY, DIRECT, WITH VOCAL CORD LESION EXCISION [[id number] (CPT??)] Surgery Details Date/Time Status Location OR Service Patient Class Case Cl ass Case Type Trauma Case? 07/31/23 0725 Posted [facility] OR [facility] Outpatient Surgery H - Elective Panel 1 Procedure LRB Anes Op Region Wound Class Comments MICROLARYNGOSCOPY, DIRECT, WITH VOCAL CORD LESION EXCISION Left General Throat Class II/ Clean Contaminated 1.25 hours (surgeon time) Ossoff laryngoscope, microscope, phonosurgical instruments 5-0 HANDYMAN tube please Surgeon Surgeon Role Service Panel Marcelino Godinez MD Primary ENT 1 Ron Herrmann MD Resident - Assisting ENT 1 documented in this encounter Social History Tobacco [...] on file documented as of this encounter Last Filed Vital Signs Vital Sign Reading Time Taken Comments Blood Pressure 113/80 07/31/2023 0900 EDT Pulse 66 07/31/2023 0619 EDT Temperature 36.2 ??C (97.2 ??F) 07/31/2023 0841 EDT Respiratory Rate 11 07/31/2023 0900 EDT Oxygen Saturation 99% 07/31/2023 0900 EDT Inhaled Oxygen Concentration - - Weight 78.6 kg (173 lb 4.5 oz) 07/31/2023 0611 E DT Height 177.8 cm (5' 10) 07/31/2023 0611 EDT Body Mass Index 24.86 07/31/2023 0611 EDT documented in this encounter Medications at Time of Discharge Medication Sig Dispensed Refills Start Date End Date albuterol (VENTOLIN HFA) 90 mcg/actuation inhaler Inhale 2 Puffs as directed every 6 hours as needed for Wheezing. amLODIPine (NORVASC) 5 mg tablet Take 1 Tablet by mouth daily. atorvastatin (LIPITOR) 10 mg tablet Take 1 Tablet by mouth daily. AM B.animalis,bifid,infantis ,long (PROBIOTIC 4X ORAL) Take by mouth. fluticasone propionate (FLONASE) 50 mcg/actuation nasal spray Instill 2 Sprays into both nostrils daily. fremanezumab-vfrm (AJOVY SYRINGE) 225 mg/1.5 mL syringe Inject 1.5 mL into the skin every 28 days. gabapentin (NEURONTIN) 800 mg tablet Take 1 Tablet by mouth daily. PM Multivitamins with Minerals tablet tablet Take 1 Tablet by mouth daily. olmesartan (BENICAR) 20 mg tablet Take 1 Tablet by mouth daily. rOPINIRole (REQUIP) 1 mg tablet Take 1 Tablet by mouth daily. umeclidinium bromide (INCRUSE ELLIPTA INHALATION) Inhale 1 Puff as directed daily. documented as of this encounter Discharge Disposition Disposition Code Departure Means Destination Comment s Home or Self Care Wheelchair Home documented in this encounter H&P Notes * Ron Herrmann MD - 07/31/2023 0705 EDT The preoperative history and physical which was performed within 30 days of this procedure has been reviewed and the clinically appropriate elements of the physical examination have been repeated. There are no changes to the documented history and physical or if so such changes are documented below RON HERRMANN MD 07/31/2023 7:05 Source Note - Bianca Barbosa NP - 07/30/2023 0:00 EDT documented in this encounter OR Notes * OR Surgeon - Marcelino Godinez MD - 07/31/2023 0834 EDT Images from the original note were not included. OPERATIVE REPORT SERVICE DATE: 07/31/2023 SURGEON: Marcelino Godinez MD PRODUCT REPRESENTATIVE: RON HERRMANN MD PREOPERATIVE DIAGNOSIS: Left true vocal cord lesion. POSTOPERATIVE DIAGNOSIS: Same. PROCEDURE: Direct microlaryngoscopy with excision of left true vocal cord lesion. ANESTHESIA: General endotracheal. FINDINGS: Superficial white bulbous lesion on the anterior aspect of the left true vocal cord. NARRATIVE: The patient was identified in preop hold where all pertinent questions were answered. The patient was brought back to the operating room where a pate moment was assured, in accordance with the WHO standards. The patient was placed in supine position and adequate anesthesia was administered. The patient was administer 2 grams of Ancef and 8 mg of decadron. A Thermoplast tooth guard was fashioned and used to protect the maxillary gingiva and a Ossof laryngoscope was placed in the oral cavity, atraumatically. This was suspended from a Chapin stand once an adequate view of the larynx was assured. Pictures of the lesion were taken as documented below. A pledget soaked in epinephrine was placed over the left true vocal cord lesion. The Zeiss S7 microscope was then used to visualize the vocal cords. A sickle knife was used to excise the lateral aspect of the lesion. The lesion was then carefully dissected from the left vocal ligament using suction and a blunt elevator. The vocal cord lesion was then grasped with forceps and retracted laterally, while scissors were used to cut along the medial edge. The lesion was fully excised and sent for routine surgical pathology. An epinephrine soaked pledget was then placed over the lesion to aid with hemostasis and the surgical site was suctioned. Photos of the operative site were taken as shown below. The laryngoscope and tooth guard were removed the oral cavity atraumatically. The patient toleratedthe procedure well and went to postanesthesia care unit for recovery. Dr Godinez was present and actively participated in the care of this patient for the entire case. ESTIMATED BLOOD LOSS: <15 mL FLUIDS: see anesthesia record URINE OUTPUT: Not recorded. SPECIMENS: Left vocal cord lesion for surgical pathology. CULTURES: None. DRAINS, PACKS AND FOREIGN MATERIALS RETAINED: none COMPLICATIONS: None. CONDITION: Good to PACU. Ron Herrmann MD Otolaryngology PGY-3 07/31/23 8:52 ' documented in this encounter Plan of Treatment Upcoming Encounters Date Type Department Care Team (Late st Contact Info) Description 01/02/2024 9:40 EDT Office Visit [facility] ENT- Main [address] [phone] Marcelino Godinez MD [address] [place] [address], [address] [place] [address] documented as of this encounter Procedures Procedure Name Priority Date/Time Associated Diagnosis Comments SURGICAL PATHOLOGY Routine 07/31/2023 8: 22 EDT MICROLARYNGOSCOPY, DIRECT, WITH VOCAL CORD LESION EXCISION 07/31/2023 7:28 EDT Vocal fold leukoplakia documented in this encounter Results * SURGICAL PATHOLOGY (07/31/2023 8:22 EDT) Note to Patient The following pathology results have been interpreted by your pathologist and may be available to you before your health provider has had the opportunity to review them. Please allow time for your provider to receive these results and explore management options, if applicable. 08/02/2023 14:54 [facility] Final Diagnosis A. LARYNX, LEFT, SUBMITTED ''TRUE VOCAL CORD LESION'', BIOPSY: - Squamous cell carcinoma in situ. - Minimal subepithelial connective tissue to evaluate for invasion. 08/02/2023 14:54 [facility] Diagnosis Comment Directional Driller slides of this case were reviewed at the intradepartmental consultation conference. 08/02/2023 14:54 [facility] Attestation There was significant resident/fellow involvement in the diagnostic evaluation of this case. By the signature below, the attending physician certifies that they have personally conducted a gross and/or microscopic examination of the described specimens and rendered or confirmed the above diagnosis. 08/02/2023 14:54 [facility] at 1454 Clinical History Vocal fold leukoplakia 08/02/2023 14:54 [facility] Gross Description A. Received fresh labelled with proper patient identification (initials B, C) and left true vocal cord lesion is a single pink-white tissue (0.4 x 0.2 x 0.1 cm). Submitted intact in A1. Danelle Halley 07/31/2023 10:52 08/02/2023 14:54 T [facility] Resident/Fell ow: Ghazala Mcconnell MD PhD 08/02/2023 14:54 T [facility] Performing Lab [facility] 08/02/2023 14:54 [facility] Scanned Images 08/02/2023 14:54 [facility] Tissue LARYNGEAL STRUCTURE / Unknown 07/31/2023 8:22 EDT 07/31/2023 9:35 EDT Marcelino Godinez MD PATHOLOGY KATHY MERRILL [facility] [address] [place] [address] documented in this encounter Visit Diagnoses Diagnosis Vocal fold leukoplakia- Primary Other 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 vocal cords documented in this encounter Admitting Diagnoses Diagnosis Vocal fold leukoplakia Other diseases of vocal cords documented in this encounter Administered Medications Inactive Administered Medications - up to 3 most recent administrations Medication Order MAR Action Action Date Dose Rate Site atropine 0.1 mg/mL syringe 0.5 mg 0.5 mg, intravenous, PRN, Starting on Sat07/31/23 at 0819, Until Sat07/31/23 at 1550, Symptomatic HR < 50, Routine, Recovery (only) diphenhydrAMINE (BENADRYL) injection 12.5 mg 12.5 mg, intravenous, PRN, 1 dose, Starting on Sat07/31/23 at 0819, Until Sat07/31/23 at 1550, nausea, Routine, Recovery (only) EPINEPHrine (ADRENALIN) injection PRN, Starting on Sat07/31/23 at 0751, Until Sat07/31/23 at 0838, Routine, Intraprocedure Given 07/31/2023 7:51 EDT 1 mL fentaNYL citrate (PF) injection 25-50 mcg 25-50 mcg, intravenous, EVERY 5 MIN PRN, Starting on Sat07/31/23 at 0819, Until Sat07/31/23 at 1550, Pain, Routine, Recovery (only) ibuprofen (MOTRIN) tablet 600 mg 600 mg, oral, ONCE PRN, 1 dose, Starting on Sat07/31/23 at 0854, Until Sat07/31/23 at 0905, Pain, Routine, Recovery (only) Given 07/31/2023 9:05 EDT 600 mg lactated ringers (LR) infusion at 25 mL/hr, intravenous, CONTINUOUS, Starting on Sat07/31/23 at 0630, Until Sat07/31/23 at 1550, Routine, Preprocedure Restarted 07/31/2023 8:32 EDT Continued by Anesthesia 07/31/2023 7:29 EDT 25 mL/hr New Bag 07/31/2023 6:33 EDT 25 mL/hr lactated ringers (LR) infusion at 75 mL/hr, intravenous, PACU CONTINUOUS, Starting on Sat07/31/23 at 0845, Until Sat07/31/23 at 1550, Routine, Recovery (only) Rate Change 07/31/2023 8:41 EDT 75 mL/hr naloxone (NARCAN) injection 0.2 mg 0.2 mg, intravenous, PRN, Starting on Sat07/31/23 at 0819, Until Sat07/31/23 at 1550, Opioid Reversal, Routine, Recovery (only) ondansetron (PF) (ZOFRAN) injection 4 mg 4 mg, intravenous, PRN, 1 dose, Starting on Sat07/31/23 at 0819, Until Sat07/31/23 at 1550, Nausea, Vomiting, Routine, Recovery (only) documented in this encounter Active and Recently Administered Medications Times are shown in EDT. Scheduled Medication Order 07/29/2023 07/30/2023 07/31/2023 ceFAZolin (ANCEF) syringe 2 g (COMPLETED) 2 g, intravenous, Administer over 5 Minutes, PRE-OP ONCE, 1 dose, On Sat07/31/23 at 0745, Routine 0741 (Given - Provid er: Franco Benson CRNA) Continuous Medication Order 07/29/2023 07/30/2023 07/31/2023 lactated ringers (LR) infusion at 25 mL/hr, intravenous, CONTINUOUS, Starting on Sat07/31/23 at 0630, Until Sat07/31/23 at 1550, Routine, Preprocedure 0633 (New Bag - Prov ider: Tobias Mac RN)0729 (Continued by Anesthesia - Provider: Franco Benson CRNA)0831 (Paused - Provider: Franco Benson CRNA - Comment: Switch to gravity)0832 (Restarted - Provider: Franco Benson CRNA) lactated ringers (LR) infusion at 75 mL/hr, intravenous, PACU CONTINUOUS, Starting on Sat07/31/23 at 0845, Until Sat07/31/23 at 1550, Routine, Recovery (only) 0841 (Rate Change - Provider: Candida Baltazar RN) PRN Medication Order 07/29/2023 07/30/2023 07/31/2023 atropine 0.1 mg/mL syringe 0.5 mg 0.5 mg, intravenous, PRN, Starting on Sat07/31/23 at 0819, Until Sat07/31/23 at 1550, Symptomatic HR < 50, Routine, Recovery (only) diphenhydrAMINE (BENADRYL) injection 12.5 mg 12.5 mg, intravenous, PRN, 1 dose, Starting on Sat07/31/23 at 0819, Until Sat07/31/23 at 1550, nausea, Routine, Recovery (only) EPINEPHrine (ADRENALIN) injection (CANCELED) PRN, Starting on Sat07/31/23 at 0751, Until Sat07/31/23 at 0838, Routine, Intraprocedure 0751 (Given - Provid er: Marcelino Godinez MD - Comment: mixed with 9 cc NaCl on patties) fentaNYL citrate (PF) injection 25-50 mcg 25-50 mcg, intravenous, EVERY 5 MIN PRN, Starting on Sat07/31/23 at 0819, Until Sat07/31/23 at 1550, Pain, Routine, Recovery (only) ibuprofen (MOTRIN) tablet 600 mg (COMPLETED) 600 mg, oral, ONCE PRN, 1 dose, Starting on Sat07/31/23 at 0854, Until Sat07/31/23 at 0905, Pain, Routine, Recovery (only) 0905 (Given - Provid er: Candida Baltazar RN) naloxone (NARCAN) injection 0.2 mg 0.2 mg, intravenous, PRN, Starting on Sat07/31/23 at 0819, Until Sat07/31/23 at 1550, Opioid Reversal, Routine, Recovery (only) ondansetron (PF) (ZOFRAN) injection 4 mg 4 mg, intravenous, PRN, 1 dose, Starting on Sat07/31/23 at 0819, Until Sat07/31/23 at 1550, Nausea, Vomiting, Routine, Recovery (only) documented in this encounter Orders Medications Ordered That Rony ht Not Have Been Administered Count Last Ordered Date First Ordered Date atropine 0.1 mg/mL syringe 0.5 mg 1 024 ceFAZolin (ANCEF) syringe 2 g 1 07/31/2023 diphenhydrAMINE (BENADRYL) i njection 12.5 mg 1 07/31/2023 fentaNYL citrate (PF) injection 25-50 mcg 1 07/31/2023 lidocaine (PF) 10 mg/mL (1 % ) injection 2 mg 1 07/31/2023 naloxone (NARCAN) injection 0.2 mg 1 2023 ondansetron (PF) (ZOFRAN) injection 4 mg 1 07/31/2023 Nursing Count Last Ordered Date First Orde red Date ACTIVITY INSTRUCTIONS 3 07/31/2023 Discharge Count Last Ordered Date First Orde red Date DISCHARGE PATIENT 1 07/31/2023 Legal Count Last Ordered Date First Orde red Date MISCELLANEOUS DISCHARGE INSTRUCTIONS 1 07/18 documented in this encounter Care Teams Stars Analytical Lead Relationship Specialty Start Date End Date Bianca Barbosa NP [address] [place] [address] PCP - General Family Medicine - Primary Care 01/18/22 documented as of this encounter
--- OUTSIDE RECORDS SUMMARY | 2023-12-05 01:40 | XMS_ITS | Referral Summary ---
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 Medications Medication Sig Dispensed Refills Start Date End Date Status albuterol (VENTOLIN HFA) 90 mcg/actuation inhaler Inhale 2 Puffs as directed every 6 hours as needed for Wheezing. Active fluticasone propionate (FLONASE) 50 mcg/actuation nasal spray Instill 2 Sprays into both nostrils daily. Active olmesartan (BENICAR) 20 mg tablet Take 1 Tablet by mouth daily. Active amLODIPine (NORVASC) 5 mg tablet Take 1 Tablet by mouth daily. Active gabapentin (NEURONTIN) 800 mg tablet Take 1 Tablet by mouth daily. PM Active rOPINIRole (REQUIP) 1 mg tablet Take 1 Tablet by mouth daily. Active fremanezumab-vfrm (AJOVY SYRINGE) 225 mg/1.5 mL syringe Inject 1.5 mL into the skin every 28 days. Active atorvastatin (LIPITOR) 10 mg tablet Take 1 Tablet by mouth daily. AM Active umeclidinium bromide (INCRUSE ELLIPTA INHALATION) Inhale 1 Puff as directed daily. Active Multivitamins with Minerals tablet tablet Take 1 Tablet by mouth daily. Active B.animalis,bifid, infantis,long (PROBIOTIC 4X ORAL) Take by mouth. Active famotidine (PEPCID) 20 mg tablet Take 1 Tablet by mouth 2 times daily for 90 days. 60 Tablet 2 11/25/2023 02/23/2024 Active omeprazole (PRILOSEC) 40 mg capsule Take 1 Capsule by mouth every morning. 30 Capsule 11 09/19/2023 11/25/2023 Discontinued (Alternate therapy) Active Problems Problem Noted Date Diagnosed Date Vocal fold leukoplakia 05/23/2023 Social History Tobacco Use Types Packs/Day Years Used Date Smoking Tobacco: Former Cigarettes Q uit: 2009 Passive Smoke Exposure: Never Smokeless Tobacco: Never Tobacco Cessation:Counseling Given: Not Answered Alcohol Use Standard Drinks/Week Comments Yes 0 (1 standard drink = 0.6 oz pur e alcohol) couple times a week Sex and Gender Information Value Date Recorded Sex Assigned at Not on file Gender Identity Male 04/19/2023 11:26 EST Sexual Orientation Not on file Last Filed Vital Signs Vital Sign Reading Time Taken Comments Blood Pressure 117/87 07/31/2023 0930 EDT Pulse 66 07/31/2023 0619 EDT Temperature 36.3 ??C (97.3 ??F) 07/31/2023 0930 EDT Respiratory Rate 9 07/31/2023 0930 EDT Oxygen Saturation 97% 07/31/2023 0930 EDT Inhaled Oxygen Concentration - - Weight 78.6 kg (173 lb 4.5 oz) 07/31/2023 0611 E DT Height 177.8 cm (5' 10) 07/31/2023 0611 EDT Body Mass Index 24.86 07/31/2023 0611 EDT Plan of Treatment Upcoming Encounters Date Type Department Care Team (Late st Contact Info) Description 01/02/2024 9:40 EDT Office Visit [facility] [address] [phone] Marcelino Godinez MD [address] [facility] [address] [place] [id number] Care Teams Test Rider Relationship Specialty Start Date End Date Bianca Barbosa, KALIA [address] [place] [address] PCP - General Family Medicine - Primary Care 01/18/22
--- OUTSIDE RECORDS SUMMARY | 2023-12-05 01:40 | XMS_ITS | Encounter Summary ---
Author Organization [facility] Address [address] [place] [address] Care Team Providers Care Wood Machinist Apprentice Name Role Phone Bianca Barbosa ASSOCIATE PROFESSOR OF THEOLOGY Primary Care Provider [phone] Encounter Details Date Type Department Care Team (Latest Contact Info) Description 07/24/2023 10:30 EST - 07/24/2023 23:59 EST Hospital Encounter [facility] Pre-Surgical Testing [address], [place] [address] Discharge Disposition: Home or Self Care Social History Tobacco Use Types Packs/Day Years [...] Sign Reading Time Taken Comments Blood Pressure - - Pulse - - Temperature - - Respiratory Rate - - Oxygen Saturation - - Inhaled Oxygen Concentration - - Weight 75.8 kg (167 lb) 07/24/2023 1021 EST Height 180.3 cm (5' 11) 07/24/2023 1021 EST Body Mass Index 23.29 07/24/2023 1021 EST documented in this encounter Medications at Time [...] Discharge Disposition Disposition Code Departure Means Destination Home or Self Care documented in this encounter OR Notes * Preprocedure Instructions - Juliana Tomas RN - 07/24/2023 1030 EST Geraldo Hennessy has been instructed as follows regarding medication administration for the day of the scheduled procedure. Date of Surgery: 07/31/23 Instructions for Taking Medications Day of Surgery Medication Dose and frequency Last Dose Hold Day of Surgery Take Day of Surgery albuterol (VENTOLIN HFA) 90 mcg/actuation inhaler Inhale 2 Puffs as directed every 6 hours as needed for Wheezing. As needed amLODIPine (NORVASC) 5 mg tablet Take 1 Tablet by mouth daily. yes atorvastatin (LIPITOR) 10 mg tablet Take 1 Tablet by mouth daily. AM Yes B.animalis,bifid,infantis,long (PROBIOTIC 4X ORAL) Take by mouth. Yes fluticasone propionate (FLONASE) 50 mcg/actuation nasal spray Instill 2 Sprays into both nostrils daily. yes fremanezumab-vfrm (AJOVY SYRINGE) 225 mg/1.5 mL syringe Inject 1.5 mL into the skin every 28 days. 07/23/2023 gabapentin (NEURONTIN) 800 mg tablet Take 1 Tablet by mouth daily. PM HS Multivitamins with Minerals tablet tablet Take 1 Tablet by mouth daily. 07/24/23 olmesartan (BENICAR) 20 mg tablet Take 1 Tablet by mouth daily. 07/29/23 rOPINIRole (REQUIP) 1 mg tablet Take 1 Tablet by mouth daily. yes umeclidinium bromide (INCRUSE ELLIPTA INHALATION) Inhale 1 Puff as directed daily. Yes Stop all vitamins and supplements 7 days prior to surgery. Nonsteroidal anti-inflammatories (NSAIDS; i.e. ibuprofen, naproxen, indomethacin, ketorolac, Motrin) stop 7 days prior to surgery. Acetaminophen (Tylenol) can be taken prior to surgery if needed. Preparing for surgery: Fasting- Follow the eating and drinking instructions below unless otherwise instructed by your surgeon Patient Pre-anesthetic Fasting Instructions 1) Have no solid food or liquids containing fats, including milk*, after midnight before your procedure. 2) On the day of your procedure, you should only have clear liquids until 2 hours before the scheduled arrival time to the hospital. Acceptable Liquids - Water - Clear apple juice - Clear white grape juice - Pedialyte - Clear sports drinks 3) Take your medications as directed with small sips of water at any time prior to your procedure. (If a medication must be taken with something other than clear liquids or sips of water, please refer to the Preoperative Screening Clinic at for guidance.) *Children under 3 years of age may have breast milk up to 4 hours and non-human milk or formula up to 6 hours before their procedural/ surgical time. Do not add cereal or thickeners to any of these liquids. Do not use any formula with cereal already added Safety Infection prevention Shower with an ANTIBACTERIAL SOAP the night before surgery and the morning of surgery. If you were given scrub sponges, use those also, scrubbing well over the area indicated by your surgeon. Do not shave your surgical site for 3 days prior to surgery. Protect Surgical Site from injury such as cuts, bruising or joyner After your morning shower avoid any personal care products such as creams, lotion, powders, deodorant, makeup, hairspray, perfumes or colognes. Ride home We require you have a responsible Adult to drive you home after surgery or to accompany you in getting home via Taxi or Bus Your Family Member/Ride Home should stay at the hospital during the procedure until you are discharged. If your ride can't stay in the hospital, they still need to come in to pick you up to assist with medication berry picker machine operator from pharmacy, review of discharge instructions and surgical consult. We ask that your ride stay within 15 minutes of the hospital for berry picker machine operator. CPAP/BiPAP Bring your CPAP or BiPAP machine in with you on the day of your surgery. Nail lithuanian and Jewelry Remove all finger nail lithuanian and makeup before surgery Remove all jewelry including rings and Body Piercings before coming in for Surgery. Glasses and Contacts Wear glasses on the Day of surgery. For eye surgeries avoid contacts for 7 days prior to surgery, unless otherwise instructed by your surgeon. Full beards Shaving is optional, certain aspects of the anesthetic management can be made easier without a fullbeard. Smoking Stop smoking tobacco and marijuana prior to surgery as much as possible with a minimum of 24 hours prior to surgery. Medications Inhalers Bring your inhalers in with you on the day of your surgery. Bowel cleansing Follow the instructions for bowel cleansing given to you by your surgeon. Once you start, drink lots of clear liquids, stopping them at the time your surgeon told you to stop. It would be best to stay at home while doing the bowel cleansing. Legal Guardianship BRING Proof of Guardianship on Day of Surgery. Legal Guardian is to be available on the Day of Surgery by Telephone if not physically present on the Day of Surgery. Surgical and/or other consents will be signed by Legal Guardian prior to the Day of Surgery if possible. Call your surgeon IF: You become ill before your surgery. You have any new skin problems near the area where your surgery will be, such as a rash, blister, or infection. You have any questions. Your surgeon may have given you other instructions to prepare for surgery. Please follow these and if you have questions call your surgeon's office. Day of surgery Identification Please bring a photo ID, insurance card and any other information needed for your surgery. Arrival General Arrival Time is 2 hours prior to your surgery time. Medications Take as directed above with a small sip of water on day of surgery. Bring a list of medications you take on the day of surgery. Leave medications at home. Clothing Wear casual, loose fitting and comfortable clothing. We recommend you wear/bring inexpensive (avoidsilks, etc.) clothing on Day of Surgery. For arm and hand surgery wear a zip up or button up shirt with short sleeves. For eye surgery, do not wear a shirt that pulls over the head unless it has a wide neck opening. Bring a hat with a visor or a pair of sunglasses to wear home after surgery. Medical Devices Bring any medical devices that you would normally use during the course of your day. These items include, but are not limited to: insulin pumps, mobility aids, CPAP. Valuables Bring only money you may need for you hospital co-pay and to purchase any prescriptions on the way home. Let the person driving you home hold you're your money while you are in surgery. Leave jewelry at home Leave contact lenses at home. Wear your eye glasses and bring your eye glass case. Leave valuable items at home. Ask a family member to bring them in after you have been admitted to the inpatient unit if possible. Equipment Remember to bring pillows for the car ride home to elevate your arm or leg (for arm/leg surgery). Bring Crutches if needed. Use the Volumetric [place] Dental Lab Technician given to you by your surgeon or nurse. Starting 2 weeks prior to your surgery use it 2 times a day, 10 times each use. Bring it with you on the day of your surgery. Visitation Per our Welcoming Policy ???Unit nursing staff may have to ask patients and families to limit numbers of family members at the bedside when it impacts the environment of care?? Typically two visitors are allowed in the Preop and Recovery areas. Bring plastic bags and paper towels in the car for the Trip Home. Contact information Patient/Family given Preop Contact Numbers appropriate to campus of surgery. For Day of Surgery: [facility] [place]: [phone]; [facility] [place]; [phone]. Prior to Day of Surgery call: [phone]. Pre-op toll Free Number . More information can also be found on our website: [email or web address] documented in this encounter Plan of Treatment Upcoming Encounters Date Type Department Care Team (Late st Contact Info) Description 01/02/2024 9:40 EDT Office Visit [facility] ENT- Main [address] [address] Marcelino Godinez MD [address] [place] [address], [address] [place] [address] documented as of this encounter Visit Diagnoses Not on filedocumented in this encounter Historical Medications * This list may reflect changes made after this encounter. Medication Sig Dispensed Refills Start Date End Date B.animalis,bifid,infantis ,long (PROBIOTIC 4X ORAL) Take by mouth. Multivitamins with Minerals tablet tablet Take 1 Tablet by mouth daily. umeclidinium bromide (INCRUSE ELLIPTA INHALATION) Inhale 1 Puff as directed daily. atorvastatin (LIPITOR) 10 mg tablet Take 1 Tablet by mouth daily. AM fremanezumab-vfrm (AJOVY SYRINGE) 225 mg/1.5 mL syringe Inject 1.5 mL into the skin every 28 days. added in this encounter Care Teams Wood Machinist Apprentice Relationship Specialty Start Date End Date Bianca Barbosa, ASSOCIATE PROFESSOR OF THEOLOGY [facility] [place] [address] PCP - General Family Medicine - Primary Care 01/18/22 documented as of this encounter
--- OUTSIDE RECORDS SUMMARY | 2023-12-05 01:40 | XMS_ITS | Encounter Summary ---
Author Organization [facility] Address [address] [place] [address] Care Team Providers Care Satellite Tv Installer Name Role Phone Bianca Barbosa CAR REPAIRER PULLMAN Primary Care Provider [phone] Reason for Visit * Reason Comments Post-OP Follow Up Encounter Details Date Type Department Care Team (Late st Contact Info) Description 08/08/2023 16:00 EDT Post-op Visit [facility] ENT- [address] [id number] Marcelino Godinez MD [address] [facility], [address] [place] [address] Dysphonia (Primary Dx); Carcinoma in situ of vocal cord Social History Tobacco Use Types Packs/Day Years [...] on file documented as of this encounter Progress Notes * Marcelino Godinez MD - 08/08/2023 1600 EDT Images from the original note were not included. Subjective: Patient ID: Geraldo Hennessy is an 62 y.o. male. Chief Complaint Patient presents with Vocal Cord lesion, dysphonia HPI Geraldo Hennessy is seen 1 week status post direct microlaryngoscopy with excision of a small recurrent left vocal fold lesion. He initially presented to Dr. Trores at [facility] otolaryngology in [facility] in late 2021 with several months of hoarseness. The patient described a raspy vocal quality and decreased range when singing in his truck. He does not do a lot of singing but has friends that do karaoke and was interested in participating more. No history of GERD, allergies. He does use a combination steroid inhaler for mild COPD. He rarely needs his albuterol rescue inhaler. He rinses his mouth after using the steroid inhaler. He smoked 1 pack of cigarettes a day for 25 years but quit in 2009. More recently, he was smoking marijuana consistently but has now changed to edibles. He rarely drinks alcohol. He has 1 caffeinated Coke each day but no coffee. He admits to relatively poor water intake. Dr. Torres identified a white plaque-like lesion of the mid left true vocal fold on office laryngoscopy which prompted direct microlaryngoscopy in the operating room with biopsy in May 2022. Pathology showed no evidence of malignancy or dysplasia: Final Diagnosis A. LARYNX, LEFT TRUE VOCAL CORD, BIOPSY: - Squamous mucosa with mild chronic inflammation and subepithelial myxoid change. - No high grade dysplasia identified. Attestation By the signature below, the attending physician certifies that they have 1) personally conducted a gross and/or microscopic examination of the described specimen(s), and/or personally interpreted theresults of laboratory testing of the described specimen(s), and 2) personally rendered or confirmedthe above diagnosis. at 0859 He had done well after this procedure although, his voice was slightly worse initially after surgery and he still struggles with his upper range and vocal clarity when trying to sing. No difficulty swallowing or breathing. No hemoptysis, sore throat or otalgia. Flexible laryngoscopy my office in early April 2023 showed a 3 to 4 mm slightly exophytic area of leukoplakia involving the superior surface of the mid left true vocal fold. This appeared superficial but does impact glottal closure and vocal fold vibration. He was then taken back to the operating room with me here at [facility] on 07/31/2023 and the recurrent left vocal fold lesion was excised. Intraoperatively, there is a small exophytic, polypoid appearing lesion of the superior surface of the left true vocal fold which did not appear adherent to the underlying vocal ligament and was completely excised using phonosurgical surgical instruments. He tolerated the surgery well and went home the same day as planned. He is just now starting to resume speakingbut his voice is subjectively improved. 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 LARYNX, LEFT, SUBMITTED ''TRUE VOCAL CORD LESION'', BIOPSY: - Squamous cell carcinoma in situ. - Minimal subepithelial connective tissue to evaluate for invasion. Diagnosis Comment Ekg/Ecg Technician slides of this case were reviewed at the intradepartmental consultation conference. Attestation There was significant resident/fellow involvement in the diagnostic evaluation of this case. By thesignature below, the attending physician certifies that they have personally conducted a gross and/or microscopic examination of the described specimens and rendered or confirmed the above diagnosis. at 1454 Objective: There were no vitals taken for this visit. Physical Exam Department of Otolaryngology PHYSICAL EXAMINATION CONSTITUTIONAL: VITAL SIGNS: Not reviewed APPEARANCE: The patient appears alert, cooperative, and comfortable. ABILITY TO COMMUNICATE / VOICE: Mild vocal roughness, no wheeze or stridor HEAD AND FACE: INSPECTION: Normal without apparent scars, lesions, or masses. PALPATION: There are no masses or sinus tenderness. SALIVARY GLANDS: Submandibular and Parotid glands are normal bilaterally FACIAL STRENGTH: Intact and symmetrical bilaterally EXTERNAL EAR & NOSE: No external ear or nose deformity noted EYES: EYES: no nystagmus EARS, NOSE, MOUTH AND THROAT: OTOSCOPY: Right external auditory canal: patent and non-inflamed Left external auditory canal: patent and non-inflamed Right tympanic membrane: intact and normally mobile without retraction, perforation or effusion Left tympanic membrane: intact and normally mobile without retraction, perforation or effusion WHISPER/TUNING FORK: Not assessed NOSE: normal turbinates and mucosa: septum in midline LIPS, TEETH & GUMS: normal for age ORAL CAVITY & OROPHARYNX: normal HYPOPHARYNX & PHARYNGEAL HUGHES: See flexible exam report LARYNX: See flexible exam report NASOPHARYNX: See flexible exam report NECK: GENERAL: Supple, no asymmetry or crepitus, trachea midline THYROID: Normal LYMPHATIC: CERVICAL LYMPH NODES: No pathologic cervical lymphadenopathy noted Endoscopy Procedure Note Pre-procedure Diagnosis: 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 The right nostril was topically anesthetized with spray. After waiting an appropriate period of time for anesthesia/ vasoconstriction to become effective (if this was applicable), the scope was passed into the right nostril and the nasopharynx, oropharynx, hypopharynx and larynx were examined. Condition: Patient tolerated procedure well and left the office in a stable condition. Complications: None Findings: Nasopharynx: Normal exam of choanae, eustachian tubes, and adenoids for age Oropharynx: Normal exam of tongue base, tonsils, and posterior pharynx Hypopharynx: Normal piriform sinuses noted, no pooling of secretions Supraglottis: Normal Posterior Commissure: Mild erythema, no lesions Right True Vocal Fold: Edematous, No lesions Left True Vocal Fold: He is healing well at the site of his recent excisional biopsy of a small left true vocal fold lesion. There is a small amount of edema and eschar but no residual lesion and minimal tissue defect. Vocal Fold Mobility: Normal bilaterally No pearl aspiration noted. Subglottis clear. Assessment: Encounter Diagnoses Name Primary? 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 Prior biopsy of the left true vocal fold lesion in the operating room with Dr. Torres in May 2022 was negative for malignancy or dysplasia. However, direct microlaryngoscopy with excision of a recurrent lesion at this site a week ago demonstrates carcinoma in situ. While this was not an oncologic surgery, this lesion was small and superficial and was removed completely at the time of surgery without extension or adherence to underlying vocal ligament or adjacent structures. Flexible laryngoscopy office today is also encouraging with appropriate healing without residual pathology. His voice is also subjectively improved. We discussed options of observation, planned re-excision or proceeding with narrow field radiation.I recommend close interval follow-up with updated laryngoscopy in 6 weeks and a planned return to the operating room soon after for direct microlaryngoscopy with re-excision to identify and remove any residual carcinoma in situ and rule out invasive cancer that would require definitive radiation therapy or more aggressive endoscopic resection (at the expense of voice). I will see him back in 6 weeks, sooner with deterioration voice or other problems/concerns. I spent a total of 25 minutes on the date of this encounter meeting with the patient and reviewing documentation/coordinating care as described in the above note. This was separate from any procedures performed at the time of the visit. 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
--- OUTSIDE RECORDS SUMMARY | 2023-12-05 01:40 | XMS_ITS | Encounter Summary ---
Author Organization [facility] Address [address] [place] [address] Care Team Providers Care Embroidery Supervisor Name Role Phone Bianca Barbosa WATCH ENGINE OPERATOR Primary Care Provider [phone] Reason for Visit * Reason Onset Date Comments Appointment Related 11/25/2023 Encounter Details Date Type Department Care Team (Late st Contact Info) Description 11/25/[address] [id number] Marcelino Godinez MD [address] [place] [address], [address] [place] [address] Appointment Related Social History Tobacco Use Types Packs/Day Years Used Date Smoking Tobacco: Former Cigarettes Q uit: 2009 Passive Smoke Exposure: Never Smokeless Tobacco: Never Alcohol Use Standard Drinks/Week Comments Yes 0 (1 standard drink = 0.6 oz pur e alcohol) couple times a week Sex and Gender Information Value Date Recorded Sex Assigned at Not on file Gender Identity Male 04/19/2023 11:26 EST Sexual Orientation Not on file documented as of this encounter Ordered Prescriptions Prescription Sig Dispensed Refills Start Date End Da te famotidine (PEPCID) 20 mg tablet Take 1 Tablet by mouth 2 times daily for 90 days. 60 Tablet 2 11/25/2023 02/23/2024 documented in this encounter Miscellaneous Notes * Telephone Encounter - ReynaOlivia - 11/25/2023 0910 EDT Patient called, states they were having a lot of acid reflux after surgery and Dr. Godinez prescribed Omeprazole however that is messing with patients stomach, causing really bad cramping. Patient spoke with a pharmacist they work with and was recommended they request Pepcid. Patient requestingprescription for Pepcid be sent to [facility] [phone] Please call patient with questions or concerns. documented in this encounter Plan of Treatment Upcoming Encounters Date Type Department Care Team (Late st Contact Info) Description 01/02/2024 9:40 EDT Office Visit [facility] ENT- [address] [id number] Marcelino Godinez MD [address] [facility], [address] [place] [id number] documented as of this encounter Visit Diagnoses Not on filedocumented in this encounter Discontinued Medications Medication Sig Discontinue Reason Start Date End Da te omeprazole (PRILOSEC) 40 mg capsule Take 1 Capsule by mouth every morning. Alternate therapy 09/19/2023 11/25/2023 documented as of this encounter Care Teams Embroidery Supervisor Relationship Specialty Start Date End Date Bianca Barbosa NP [address] [place] [address] PCP - General Family Medicine - Primary Care 01/18/22 documented as of this encounter
--- OUTSIDE RECORDS SUMMARY | 2023-12-05 01:40 | XMS_ITS | Encounter Summary ---
Author Organization [facility] Address [address] [place] [address] Care Team Providers Care Retail Aide Name Role Phone Familia, Bianca Anastasiia [place] MANAGER Primary Care Provider [phone] Encounter Details Date Type Department Care Team (Late st Contact Info) Description 06/04/2022 Lab Requisition [facility] Pathology & Laboratory Medicine - [address] [address] Biju Torres MD [address] [place] [id number] Encounter for other general examination Social History Tobacco Use Types Packs/Day Years Used Date Smoking Tobacco: Never Assessed Sex and Gender Information Value Date Recorded Sex Assigned at Not on file Gender Identity Male 04/19/2023 11:26 EST Sexual Orientation Not on file documented as of this encounter Plan of Treatment Upcoming Encounters Date Type Department Care Team (Late st Contact Info) Description 01/02/2024 9:40 EDT Office Visit [facility] ENT- [address] [id number] Marcelino Godinez MD [address] [facility], [facility] [address] [place] [address] documented as of this encounter Procedures Procedure Name Priority Date/Time Associated Diagnosis Comments SURGICAL PATHOLOGY Today 06/04/2022 10 :48 EST Encounter for other general examination documented in this encounter Results * SURGICAL PATHOLOGY (06/04/2022 10:48 EST) Note to Patient The following pathology results have been interpreted by your pathologist and may be available to you before your health provider has had the opportunity to review them. Please allow time for your provider to receive these results and explore management options, if applicable. 06/06/2022 8:59 [facility] Final Diagnosis A. LARYNX, LEFT TRUE VOCAL CORD, BIOPSY: - Squamous mucosa with mild chronic inflammation and subepithelial myxoid change. - No high grade dysplasia identified. 06/06/2022 8:59 EST [facility] Attestation By the signature below, the attending physician certifies that they have 1) personally conducted a gross and/or microscopic examination of the described specimen(s), and/or personally interpreted the results of laboratory testing of the described specimen(s), and 2) personally rendered or confirmed the above diagnosis. 06/06/2022 8:59 [facility] at 0859 Clinical History Change in voice 06/06/2022 8:59 [facility] Gross Description A. Received in formalin labelled with proper patient identification (initials B, C) and true vocal cord Bx L is a membranous pale canales tissue less than 0.1 cm in greatest dimension. Entirely submitted in A1 VINITA EM(ASCP) 06/04/2022 17:41 06/06/2022 8:59 EST [facility] Performing Lab [facility] 06/06/2022 8:59 EST [facility] Scanned Images 06/06/2022 8:59 [facility] Tissue ENTIRE LARYNX / Unknown 06/04/2022 10:48 EST 06/04/2022 17:30 EST Biju Torres MD PATHOLOGY ORDERABLES [facility] [address] [place] [address] documented in this encounter Visit Diagnoses Diagnosis Encounter for other general examination documented in this encounter Care Teams Retail Aide Relationship Specialty Start Date End Date Bianca Barbosa NP [address] [place] [address] PCP - General Family Medicine - Primary Care 01/18/22 documented as of this encounter
--- OUTSIDE RECORDS SUMMARY | 2023-12-05 01:40 | XMS_ITS | Encounter Summary ---
Author Organization [facility] Address [address] [place] [address] Care Team Providers Care Coastal/Harbor Defense Officer Name Role Phone Familia, Bianca Laurent COMMERCIAL MORTGAGE BROKER Primary Care Provider [phone] Reason for Visit * Reason Comments Follow-up 6wk f/u vocal cord c a, dysphoniaThroat bugging since surgery, clearing a lot, eat drink getting acid reflux Encounter Details Date Type Department Care Team (Late st Contact Info) Description 09/19/2023 10:40 EDT Office Visit [facility] ENT- [address] [id number] Marcelino Godinez MD [address] [place] [address], [address] [place] [address] 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 30 Capsule 11 09/19/2023 11/25/2023 documented in this encounter Progress Notes * Marcelino Godinez MD - 09/19/2023 1040 EDT Images from the original note were not included. Subjective: Patient ID: Geraldo Hennessy is an 62 y.o. male. 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 He initially presented to Dr. Torres at [facility] otolaryngology in [facility] in late 2021 with several months [...] He rarely drinks alcohol. He has 1 caffeinatedCoke each day but no coffee. He admits to relatively poor water intake. Dr. Torres identified a white plaque-like lesion of the mid left true vocal fold on office laryngoscopy which prompted direct microlaryngoscopy in the operating room with biopsy in May 2022. Pathology showed no evidence of malignancy or dysplasia at that time. He had done well after this procedure although, his voice was slightly worse initially after surgery. No difficulty swallowing or breathing. No hemoptysis, sore throat or otalgia. Flexible laryngoscopy my office in early April 2023 showed a 3 to 4 mm slightly exophytic area of leukoplakia involving the superior surface of the mid left true vocal fold prompting direct microlaryngoscopy with me in the operating room 07/31/2023 with excision of the left vocal fold lesion Intraoperatively, there is a small exophytic, polypoid appearing lesion of the superior surface of the left true vocal fold which did not appear adherent to the underlying vocal ligament and was completely excised using phonosurgical surgical instruments. He tolerated the surgery well and went homethe same day as planned. Voice is gradually improved. 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 LARYNX, LEFT, SUBMITTED ''TRUE VOCAL CORD LESION'', BIOPSY: - Squamous cell carcinoma in situ. - Minimal subepithelial connective tissue to evaluate for invasion. Diagnosis Comment Chief Console Operator slides of this case were reviewed at the intradepartmental consultation conference. Attestation There was significant resident/fellow involvement in the diagnostic evaluation of this case. By thesignature below, the attending physician certifies that they have personally conducted a gross and/or microscopic examination of the described specimens and rendered or confirmed the above diagnosis. at 1454 He returns for follow-up today for updated laryngeal examination and discussion as to whether reexcision is appropriate/indicated (versus close interval monitoring). Voice continues to improve. He does have some vocal fatigue and strain, worse with increased voice use. He is also noted more acid reflux symptoms for which he has been taking [id number] omeprazole. No otalgia, hemoptysis or difficulty with breathing or swallowing. Portions of this note copied from his prior encounter with me on 08/08/2023 have been updated and reviewed. Objective: There were no vitals taken for [...] erythema, no lesions Right True Vocal Fold: Normal, No lesions Left True Vocal Fold: He has healed well at the site of his previous excisional biopsy without evidence of residual or recurrent leukoplakia, erythroplakia, ulceration or mass. Vocal Fold Mobility: Normal bilaterally No pearl aspiration noted. Subglottis clear. Assessment: Encounter Diagnoses Name Primary? 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 He also has a history of chronic laryngitis from tobacco abuse and GERD. Prior biopsy of a left true vocal fold lesion in the operating room with Dr. Torres in May 2022was negative for malignancy or dysplasia. However, direct microlaryngoscopy with excision of a recurrent lesion at this site on 07/31/2023 demonstrates carcinoma in situ. While this was not an oncologic surgery, this lesion was small and superficial and was removed completely at the time of surgery without extension or adherence to underlying vocal ligament or adjacent structures. Voice continues to improve. He does have some vocal fatigue and strain, worse with increased voice use. He has also noted more acid reflux symptoms for which he has been taking dknn-[id number] omeprazole. No otalgia, hemoptysis or difficulty with breathing or swallowing. Flexible laryngoscopy office today is also encouraging with a well-healed left vocal fold without evidence of residual or recurrent lesion. We again discussed options of observation, planned re-excision or proceeding with narrow field radiation. Given the improvement in voice, healthy appearance of the left vocal fold on flexible laryngoscopy without evidence of recurrent lesion, I recommend close interval follow-up in several months. In the meantime, I have prescribed omeprazole 40 mg a day for GERD. We also discussed diet and lifestyle modifications directed minimizing acid reflux into the throat. He should avoid menthol lozenges as well. I will see him back in 10-12 weeks, sooner with deterioration voice or other [...] 01/02/2024 9:40 EDT Office Visit [facility] ENT- [address] [id number] Marcelino Godinez MD [address] [place] [address], [address] [place] [address] documented as of this encounter Visit Diagnoses Diagnosis Carcinoma in situ of vocal cord- Primary Carcinoma in situ of larynx Dysphonia Gastroesophageal reflux disease without esophagitis Esophageal reflux documented in this encounter Care Teams Coastal/Harbor Defense Officer Relationship Specialty Start Date End Date Bianca Barbosa NP [address] [place] [address] PCP - General Family Medicine - Primary Care 01/18/22 documented as of this encounter
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
--- OUTSIDE RECORDS SUMMARY | 2023-12-05 01:40 | XMS_ITS | Clinical Summary ---
Author Organization [facility] [place] [address] Care Team Providers Care Photogrammetric Technician Name Role Phone Bianca Barbosa APRN Primary Care Provider [phone] Allergies Active Allergy Reactions Criticality Noted Date Comments Codeine Nausea And Vomiting High 05/22/2022 Medications Medication Sig Dispensed Refills Start Date End Date Status gabapentin (Neurontin) 300 mg Capsule TAKE 1-3 CAPSULES BY MOUTH EVERY NIGHT 04/20/2022 Active losartan (Cozaar) 50 mg Tablet Take 50 mg by mouth daily. 03/16/2022 Active tamsulosin (Flomax) 0.4 mg Capsule TAKE 2 CAPSULES BY MOUTH ONCE A DAY AT BEDTIME 01/19/2022 Active Active Problems No known active problems Social History Tobacco Use Types Packs/Day Years Used Date Smoking Tobacco: Never Assessed Sex and Gender Information Value Date Recorded Sex Assigned at Not on file Gender Identity Not on file Sexual Orientation Not on file Plan of Treatment Health Maintenance Due Date Last Done Comments CT Colonography 1962 Colonoscopy 1962 Colorectal Cancer Screening 1962 FIT DNA 1962 FIT 1962 Sigmoidoscopy (10 year) with FIT yearly 1962 Sigmoidoscopy 1962 HIV screen 1980 Hepatitis C Screening 1980 Lipid Screening 1980 Tdap adult 1981 Tetanus vaccine 1981 Zoster vaccine (1 of 2) 2012 Advance Directive 2017 Covid-19 Vaccine ( season) 2023 Influenza (Flu) vaccine (1 o f 1 - Influenza standard series) 01/19/2024 Care Teams Photogrammetric Technician Relationship Specialty Start Date End Date Bianca Barbosa, WATERPROOFER HELPER [facility] [place] [address] PCP - General Family Medicine 05/22/22
--- OUTSIDE RECORDS SUMMARY | 2023-12-05 01:40 | XMS_ITS | Encounter Summary ---
Author Organization [facility] Address [address] [place] [address] Care Team Providers Care Model And Dye Person Name Role Phone Bianca Barbosa WAREHOUSE OPERATIONS MANAGER Primary Care Provider [phone] Reason for Visit * Reason Onset Date Comments Discuss Surgery 07/30/2023 Encounter Details Date Type Department Care Team (Late st Contact Info) Description 07/30/2023 Telephone [facility] ENT- [address] [phone] Marcelino Godinez MD [address] [facility], [address] [place] [address] Discuss Surgery Social History Tobacco Use Types Packs/Day Years [...] encounter Miscellaneous Notes * Telephone Encounter - Olivia Orellana - 07/30/2023 0768 EDT Transitional Living Specialist contacted patient and confirmed the following: - Surgery Date: 07/31/23 - Registration Check In: 0545 - Surgery Start Time: 0730 - Dietary Restrictions: - - Night Before Surgery: Have no solid food or liquids containing fats, including milk, after midnight before your procedure. - - Day of Surgery: Only have water, apple juice or sports drinks until 2 hours before the scheduled arrival time to the hospital. - Must have pre-arranged transportation home - Post Op Appt (if applicable) on: 08/07 at 4:00 documented in this encounter Plan of Treatment Upcoming Encounters Date Type Department Care Team (Late st Contact Info) Description 01/02/2024 9:40 EDT Office Visit [facility] ENT- [address] [address] Marcelino Godinez MD [address] [place] [address], [address] [place] [phone] documented as of this encounter Visit Diagnoses Not on filedocumented in this encounter Care Teams Model And Dye Person Relationship Specialty Start Date End Date Bianca Barbosa NP [address] [place] [address] PCP - General Family Medicine - Primary Care 01/18/22 documented as of this encounter
--- OUTSIDE RECORDS SUMMARY | 2023-12-05 01:40 | XMS_ITS | Encounter Summary ---
[place] [address] Care Team Providers Care Corporate Communications Associate Name Role Phone Bianca Barbosa APRN Primary Care Provider [phone] Encounter Details Date Type Department Care Team (Latest Contact Info) Description 05/22/2022 Travel Social History Tobacco Use Types Packs/Day Years Used Date Smoking Tobacco: Never Assessed Sex and Gender Information Value Date Recorded Sex Assigned at Not on file Gender Identity Not on file Sexual Orientation Not on file documented as of this encounter Plan of Treatment Not on file documented as of this encounter Visit Diagnoses Not on filedocumented in this encounter Care Teams Corporate Communications Associate Relationship Specialty Start Date End Date Bianca [place] [address] PCP - General Family Medicine 05/22/22 documented as of this encounter
--- OUTSIDE RECORDS SUMMARY | 2023-12-05 01:40 | XMS_ITS | Encounter Summary ---
Author Organization [facility] Address [address] [place] [address] Care Team Providers Care Personal Loan Specialist Name Role Phone Bianca Barbosa ANIMAL KILLER Primary Care Provider [phone] Reason for Visit * Reason Comments Vocal Cord Dysfunction * Referral (Routine) - Receiving Office to Obtain Authorization Specialty Diagnoses / Procedures Referred By [facility] Carealexus garnica Referred To Contact Otolaryngology Diagnoses Other diseases of vocal cords Unspecified voice and resonance disorder Biju Torres MD [address] [place] [address] Marcelino Godinez MD [address] [place] [phone] Referral ID Status Reason Start Date Expiration Date Visits Requested Visits Authorized [id number] Receiving Office to Obtain Authorization 1 1 Encounter Details Date Type Department Care Team (Late st Contact Info) Description 04/19/2023 8:00 EST Office Visit [facility] ENT- [address] [address] Marcelino Godinez MD [address] [place] [phone] Dysphonia (Primary Dx); Chronic laryngitis; Vocal fold leukoplakia Social History Tobacco Use Types Packs/Day Years Used Date Smoking Tobacco: Never Assessed Sex and Gender Information Value Date Recorded Sex Assigned at Not on file Gender Identity Male 04/19/2023 11:26 EST Sexual Orientation Not on file documented as of this encounter Progress Notes * Marcelino Godinez MD - 04/19/2023 0800 EST Subjective: Patient ID: Geraldo Hennessy is an 62 y.o. male. Chief Complaint Patient presents with ??? Vocal Cord problem Biju Torres has requested that I see Geraldo Hennessy in consultation regarding hoarseness, vocal fold lesion. HPI Geraldo Hennessy is seen today with difficulties with voice. He initially presented to Dr. [facility] otolaryngology in [facility] in late 2021 with 1 to 2 months of hoarseness. The patient described a [...] alcohol. He has 1 caffeinated Coke each daybut no coffee. He admits to relatively poor [...] or confirmedthe above diagnosis. at 0859 He tolerated the procedure well without difficulty or complication. His voice was slightly worse initially after surgery but is gradually returned to his baseline, mild to moderate hoarseness. He still struggles with his upper range and vocal clarity when trying to sing but his speaking voice is relatively strong and clear. He is most bothered by his dry mouth postnasal drainage with thick throatphlegm. No difficulty swallowing or breathing. No hemoptysis, sore throat or otalgia. No past medical history on file. No past surgical history on file. No family history on file. Social Social History Socioeconomic History ??? Marital status: Not on file Spouse name: Not on file ??? Number of children: Not on file ??? Years of education: Not on file ??? Highest education level: Not on file Occupational History ??? Not on file Tobacco Use ??? Smoking status: Not on file ??? Smokeless tobacco: Not on file Substance and Sexual Activity ??? Alcohol use: Not on file ??? Drug use: Not on file ??? Sexual activity: Not on file Other Topics Concern ??? Not on file Social History Narrative ??? Not on file Social Determinants of Health Financial Resource Strain: Not on file Food Insecurity: Not on file Transportation Needs: Not on file Physical Activity: Not on file Stress: Not on file Social Connections: Not on file Housing Stability: Not on file Outpatient Medications Marked as Taking for the 04/19/23 encounter (Office Visit) with Marcelino Godinez MD Medication Sig Dispense Refill ??? albuterol (VENTOLIN HFA) 90 mcg/actuation inhaler Inhale 2 Puffs as directed every 6 hours as needed for Wheezing. ??? amLODIPine (NORVASC) 5 mg tablet Take 1 Tablet by mouth daily. ??? fluticasone propionate (FLONASE) 50 mcg/actuation nasal spray Instill 2 Sprays into both nostrils daily. ??? gabapentin (NEURONTIN) 800 mg tablet Take 1 Tablet by mouth daily. ??? olmesartan (BENICAR) 20 mg tablet Take 1 Tablet by mouth daily. ??? rOPINIRole (REQUIP) 1 mg tablet Take 1 Tablet by mouth daily. Not on File Review of Systems Constitutional: Negative for chills, fever, malaise/fatigue and weight loss. HENT: Positive for congestion and sore throat. Negative for ear pain and hearing loss. Eyes: Positive for photophobia. Negative for blurred vision and double vision. Respiratory: Negative for cough, hemoptysis, shortness of breath and wheezing. Cardiovascular: Negative for chest pain, palpitations, claudication and leg swelling. Gastrointestinal: Negative for heartburn. Musculoskeletal: Negative for joint pain and myalgias. Skin: Negative for rash. Neurological: Positive for sensory change and headaches. Negative for focal weakness. Endo/Heme/Allergies: Positive for environmental allergies. Does not bruise/bleed easily. - See HPI Objective: There were no vitals taken for [...] LYMPH NODES: No pathologic cervical lymphadenopathy noted RESPIRATORY: LUNGS: Not examined CARDIOVASCULAR: CARDIOVASCULAR: Not examined NEUROLOGIC: NEUROLOGIC: Normal mood and affect Endoscopy Procedure Note Pre-procedure Diagnosis: Hoarseness / [...] Edematous, No lesions Left True Vocal Fold: Edematous, Is a 3 to 4 mm slightly exophytic area of leukoplakia involving the superior surface of the mid left true vocal fold. This appears superficial but does impact glottalclosure and vocal fold vibration. Vocal Fold Mobility: Normal bilaterally No pearl aspiration noted. Subglottis clear. Assessment: Encounter Diagnoses Name Primary? Dysphonia Yes ??? Chronic laryngitis ??? Vocal fold leukoplakia Plan: Multifactorial hoarseness secondary to chronic laryngitis from prior tobacco/marijuana abuse, suboptimal vocal hygiene and a recurrent area of leukoplakia involving the left true vocal fold. Prior biopsy of the left true vocal fold lesion in the operating room with Dr. Torres in May 2022 was negative for malignancy or dysplasia. The area continues to look relatively superficial with a very low level of concern for progression to cancer. We discussed options of direct microlaryngoscopy with excision of the left vocal fold lesion with a goal of voice improvement. He is only mildly bothered by his vocal complaints at this time, which predominantly affect his singing voice, and opts for observation. This is reasonable. Vocal hygiene was reviewed. He was encouraged to improve his hydration and use a humidifier in the bedroom at night. Nasal saline rinses may also help with some of his postnasal drainage. He should continue to rinse or gargle after his steroid inhaler use. He will follow-up locally with Dr. Torres, with plans to contact my office for follow-up should hisvoice deteriorate and/or the left true vocal fold lesion progresses over time. documented in this encounter Plan of Treatment Upcoming Encounters Date Type Department Care Team (Late st Contact Info) Description 01/02/2024 9:40 EDT Office Visit [facility] ENT- [address] [phone] Marcelino Godinez MD [address] [place] [address], [address] [place] [phone] documented as of this encounter Visit Diagnoses Diagnosis Dysphonia- Primary Chronic laryngitis Vocal fold leukoplakia Other diseases of vocal cords documented in this encounter Historical Medications * This list may reflect changes made after this encounter. Medication Sig Dispensed Refills Start Date End Date rOPINIRole (REQUIP) 1 mg tablet Take 1 Tablet by mouth daily. gabapentin (NEURONTIN) 800 mg tablet Take 1 Tablet by mouth daily. PM amLODIPine (NORVASC) 5 mg tablet Take 1 Tablet by mouth daily. olmesartan (BENICAR) 20 mg tablet Take 1 Tablet by mouth daily. fluticasone propionate (FLONASE) 50 mcg/actuation nasal spray Instill 2 Sprays into both nostrils daily. albuterol (VENTOLIN HFA) 90 mcg/actuation inhaler Inhale 2 Puffs as directed every 6 hours as needed for Wheezing. added in this encounter Care Teams Personal Loan Specialist Relationship Specialty Start Date End Date Bianca Barbosa [place] [address] PCP - General Family Medicine - Primary Care 01/18/22 documented as of this encounter
--- OUTSIDE RECORDS SUMMARY | 2023-12-05 01:40 | XMS_ITS | Encounter Summary ---
Author Organization [facility] Address [address] [place] [address] Care Team Providers Care Auto Emissions Technician Name Role Phone Bianca Barbosa SCALP TREATMENT SPECIALIST Primary Care Provider [phone] Reason for Visit * Auth/Cert (Routine) Specialty Diagnoses / Procedures Referred By Jame garnica Referred To Contact Diagnoses Vocal fold leukoplakia Procedures NC LARGSC EXC [place]&/STRPG CORDS/EPIGL MCRSCP/TLSCP MICROLARYNGOSCOPY, DIRECT, WITH VOCAL CORD LESION EXCISION Referral ID Status Reason Start Date Expiration Date Visits Re quested Visits Authorized [id number] 07/18/2023 07/17/2024 1 1 Encounter Details Date Type Department Care Team (Late st Contact Info) Description 07/31/2023 5:42 EDT - 07/31/2023 9:53 EDT Hospital Encounter [facility] [place] [address] [place] [phone] Marcelino Godinez MD [address] [place] [address], [facility] [address] [place] [address] Discharge Disposition: Home or Self Care Social [...] Pressure 117/87 07/31/2023 0930 EDT Pulse 66 07/31/202319 EDT Temperature 36.3 ??C (97.3 ??F) 07/31/2023 0930 EDT Respiratory Rate 9 07/31/2023 0930 EDT Oxygen Saturation 97% 07/31/2023929 EDT Inhaled Oxygen Concentration - - Weight 78.6 kg (173 lb 4.5 oz) 07/31/2023610 E DT Height 177.8 cm (5' 10) 07/31/2023610 EDT Body Mass Index 24.86 07/31/2023610 EDT documented in this encounter Medications at [...] SERVICE DATE: 07/31/2023 SURGEON: Marcelino Godinez MD DIPLOMA DENTAL ASSISTANT: RON HERRMANN MD PREOPERATIVE DIAGNOSIS: Left true [...] Info) Description 01/02/2024 9:40 EDT Office Visit [facility] ENT- [address] [address] Marcelino Godinez MD [address] [place] [address], [address] [place] [address] documented as of this encounter [...] explore management options, if applicable. 08/02/2023 14:54 EDT [facility] Final Diagnosis A. LARYNX, LEFT, SUBMITTED ''TRUE VOCAL CORD LESION'', BIOPSY: - Squamous cell carcinoma in situ. - Minimal subepithelial connective tissue to evaluate for invasion. 08/02/2023 14:54 EDT [facility] Diagnosis Comment Neuroradiologist slides of this case were reviewed at the intradepartmental consultation conference. 08/02/2023 14:54 EDT [facility] Attestation There was significant resident/fellow involvement in the diagnostic evaluation of this case. By the signature below, the attending physician certifies that they have personally conducted a gross and/or microscopic examination of the described specimens and rendered or confirmed the above diagnosis. 08/02/2023 14:54 T [facility] at 1454 Clinical History Vocal fold leukoplakia 08/02/2023 14:54 EDT [facility] Gross Description A. Received fresh labelled with proper patient identification (initials B, C) and left true vocal cord lesion is a single pink-white tissue (0.4 x 0.2 x 0.1 cm). Submitted intact in A1. Danelle Halley 07/31/2023 10:52 08/02/2023 14:54 EDT [facility] Resident/Fell ow: Ghazala Mcconnell MD PhD 08/02/2023 14:54 EDT [facility] Performing Lab [facility] 08/02/2023 14:54 T [facility] Scanned Images 08/02/2023 14:54 [facility] Tissue LARYNGEAL STRUCTURE / Unknown 07/31/2023 8:22 EDT 07/31/2023 9:35 EDT Marcelino Godinez MD PATHOLOGY KATHY MERRILL [facility] [address] [place] [address] documented in this encounter Visit Diagnoses Diagnosis Vocal fold leukoplakia- Primary Other diseases of vocal cords documented in [...] Sat07/31/23 at 1550, nausea, Routine, Recovery (only) fentaNYL citrate (PF) injection 25-50 mcg 25-50 [...] (BENADRYL) i njection 12.5 mg 1 07/31/2023 EPINEPHrine (ADRENALIN) injection 1 024 fentaNYL citrate (PF) injection 25-50 mcg 1 [...] First Orde red Date MISCELLANEOUS DISCHARGE INSTRUCTIONS 07/18 documented in this encounter Care Teams Auto Emissions Technician Relationship Specialty Start Date End Date Bianca Barbosa NP [address] [place] [address] PCP - General Family Medicine - Primary Care 01/18/22 documented as of this encounter
--- OUTSIDE RECORDS SUMMARY | 2023-12-05 01:40 | XMS_ITS | Encounter Summary ---
Author Organization [facility] Address [address] [place] [address] Care Team Providers Care Manager Merchandise Name Role Phone FamiliaBianca BOOT AND SHOE LABORER Primary Care Provider Reason for Visit * Reason Onset Date Comments Surgery Scheduling 05/23/2023 Encounter Details Date Type Department Care Team (Late st Contact Info) Description 05/23/2023 Telephone [facility] ENT- [address] [phone] Marcelino Godinez MD [address] [facility], [address] [place] [address] Surgery Scheduling Social History Tobacco Use Types Packs/Day Years Used Date Smoking Tobacco: Never Assessed Sex and Gender Information Value Date Recorded Sex Assigned at Not on file Gender Identity Male 04/19/2023 11:26 EST Sexual Orientation Not on file documented as of this encounter Miscellaneous Notes * Telephone Encounter - Marcelino Godinez MD - 05/23/2023 1712 EST Case request for direct microlaryngoscopy with excision of vocal fold lesion placed. This will be outpatient surgery with a 1 week post-op visit with me in clinic. Will obtain consent for surgery day of surgery. I was unable to put in pre-op orders for antibiotics (ancef 2 grams IV x 1), IV via this telephone encounter. Marcelino Godinez MD * Telephone Encounter - Terry Barraganianna - 05/23/2023 1017 EST Patient has decided he would like to move forward with surgery please put in a case request Thanks documented in this encounter Plan of Treatment Upcoming Encounters Date Type Department Care Team (Late st Contact Info) Description 01/02/2024 9:40 EDT Office Visit [facility] ENT- [address] [phone] Marcelino Godinez MD [address] [place] [address], [facility] [address] [place] [phone] documented as of this encounter Visit Diagnoses Diagnosis Vocal fold leukoplakia- Primary Other diseases of vocal cords documented in this encounter Orders Case Request Count Last Ordered Date First Orde red Date CASE REQUEST OPERATING ROOM 1 05/23/2023 documented in this encounter Care Teams Manager Merchandise Relationship Specialty Start Date End Date Bianca Barbosa NP [address] [place] [address] PCP - General Family Medicine - Primary Care 01/18/22 documented as of this encounter
--- OUTSIDE RECORDS SUMMARY | 2023-12-05 01:40 | XMS_ITS | Encounter Summary ---
Author Organization [facility] [place] [address] Care Team Providers Care Automated Manufacturing Instructor Name Role Phone Bianca Barbosa APRN Primary Care Provider [phone] Reason for Visit * Reason Comments Skin Check * Consultation (Routine) - Closed Specialty Diagnoses / Procedures Referred By Jame garnica Referred To Contact Dermatology Diagnoses Personal history of other malignant neoplasm of skin Personal history of diseases of the skin and subcutaneous tissue Bianca Barbosa APRN [address] [place] [address] [facility] D[facility]atology [address] [place] [phone] Referral ID Status Reason Start Date Expiration Date Visits Re quested Visits Authorized [id number] Closed 05/01/2022 05/01/2023 1 1 Encounter Details Date Type Department Care Team (Late st Contact Info) Description 05/22/2022 9:30 AM EST Office Visit Dermatology at [address] [phone] Richie Stallworth MD [address] [place] [address] [place] [address] History of basal cell carcinoma; [place] (actinic keratosis) Social History Tobacco Use Types Packs/Day Years Used Date Smoking Tobacco: Never Assessed Sex and Gender Information Value Date Recorded Sex Assigned at Not on file Gender Identity Not on file Sexual Orientation Not on file documented as of this encounter Progress Notes * Richie Stallworth MD - 05/22/2022 9:30 AM EST Problem: 1. New patient, initial visit, skin checkup 2. History of basal cell carcinomas, left medial upper cheek 2013 and left medial upper back treated with C&D March 2016 Geraldo would like to have a general skin checkup today. He has a history of a basal cell carcinoma. His family has a farm in [place]. He lived for a number of years in [place] and then many years also in [place] in the [place] area. He is now moved back to the [facility]. He was previously followed by Dr. Dougherty who is his tipple engineer in [place]. That while there he received 3 treatments with photodynamic PDL therapy. He was given a prescription for what sounds like a fluorouracil cream but has not used that yet. Physical examination reveals a pleasant 61-year-old gentleman who has extensive tattoos over the upper shoulders and chest. He has a benign examination of the scalp the face the neck the chest the back the hands arms forearms thighs and calves. He has a hyperkeratotic actinic keratosis of the left upper back. He has some diffuse actinic damage of the upper forehead along the hairline and on the medial cheeks bilaterally. Otherwise careful examination today is benign Assessment plan: History of basal cell carcinomas 1. No evidence of recurrence at previously treated sites 2. Reinforced sun avoidance precautions which the patient is currently following. Actinic keratosis hyperkeratotic left upper back 1. LN 2 x 2 applied to single site Diffuse actinic damage facial 1. Recommend that the patient use the prescription tube of fluorouracil cream given to him by his prior tipple engineer twice daily for 7 days, then off for 3 weeks, then repeat for 1 more week then discontinue 2. Recommend that I see him on a once yearly basis. Return to clinic in 1 year for repeat check. CC: Bianca Barbosa APRN documented in this encounter Plan of Treatment Not on file documented as of this encounter Visit Diagnoses Diagnosis History of basal cell carcinoma Personal history of other malignant neoplasm of skin [place] (actinic keratosis) Actinic keratosis documented in this encounter Care Teams Automated Manufacturing Instructor Relationship Specialty Start Date End Date [place] [address] PCP - General Family Medicine 05/22/22 documented as of this encounter
--- OUTSIDE RECORDS SUMMARY | 2023-12-05 01:40 | XMS_ITS | Encounter Summary ---
Author Organization [facility] Address [address] [place] [address] Care Team Providers Care Field Crop Farmer Name Role Phone Familia, Bianca Anastasiia OUTSOLE TACKER Primary Care Provider [phone] Encounter Details Date Type Department Care Team (Late st Contact Info) Description 02/26/2022 Lab Requisition [facility] Pathology & Laboratory Medicine - [address] [address] Biju Torres MD [address] [place] [phone] Encounter for other general examination Social History [...] Info) Description 01/02/2024 9:40 EDT Office Visit [facility] ENT- [address] [phone] Marcelino Godinez MD [address] [facility], [facility] [address] [place] [phone] documented as of this encounter Procedures Procedure Name Priority Date/Time Associated Diagnosis Comments SURGICAL PATHOLOGY Today 02/26/2022 12 :03 EDT Encounter for other general examination documented in this encounter Results * SURGICAL PATHOLOGY (02/26/2022 12:03 EDT) Note to Patient The following pathology results have been interpreted by your pathologist and may be available to you before your health provider has had the opportunity to review them. Please allow time for your provider to receive these results and explore management options, if applicable. 02/28/2022 10:33 [facility] Final Diagnosis A. NASAL SEPTUM, SEPTOPLASTY: - Fragments of cartilage consistent with nasal septum with no specific gross pathology features. Gross only. 02/28/2022 10:33 [facility] Attestation By the signature below, the attending physician certifies that they have 1) personally conducted a gross and/or microscopic examination of the described specimen(s), and/or personally interpreted the results of laboratory testing of the described specimen(s), and 2) personally rendered or confirmed the above diagnosis. 02/28/2022 10:33 [facility] at 1033 Clinical History Deviated nasal septum 02/28/2022 10:33 [facility] Gross Description A. Received in formalin labelled with proper patient identification (initials B, C) and septal cartilage are 3 fragments of rubbery cartilage (0.5 x 0.5 x 0.2 cm to 2.8 x 1.6 x 0.2 cm). The surfaces are smooth with a small amount of dark brown blood clot. Sectioning reveals a marmolejo smooth cut surface with no nodules or discrete lesions. There is no associated mucosal tissue. No sections are submitted. Gross only. VINITA MG(ASCP) 02/27/2022 8:02 02/28/2022 10:33 [facility] Performing Lab [facility] 02/28/2022 10:33 [facility] Scanned Images 02/28/2022 10:33 [facility] Tissue ENTIRE NASAL SEPTUM / Unknown 02/26/2022 12:03 EDT 02/26/2022 21:14 EDT Biju Torres MD PATHOLOGY ORDERABLES [facility] [address] [place] [address] documented in this encounter Visit Diagnoses Diagnosis Encounter for other general examination documented in this encounter Care Teams Field Crop Farmer Relationship Specialty Start Date End Date Bianca Barbosa, KALIA [address] [place] [address] PCP - General Family Medicine - Primary Care 01/18/22 documented as of this encounter
--- NOTE | 2023-12-05 06:45 | DI.MRI_ITS ---
Exam(s) MR PELVIS WO EXAM: MR PELVIS WO CLINICAL HISTORY: PIRIFORMIS SYNDROME LT SIDE,LESION,g57.02,EVAL LT SCIATIC NERVE TECHNIQUE: Multiplanar multisequence MRI of Pelvis was performed COMPARISON: MR MR PELVIS WO from 12/27/2022 MR MR LUMBAR SPINE WO from 09/19/2023 FINDINGS: Bones: There is no fracture or contusion pattern. No significant joint effusion or labral injury is present. No bone marrow edema is seen. The SI joints and symphysis pubis are well maintained. Degen erative disc changes noted at L4-5 and L5-S1. There is bilateral neural foraminal narrowing at L5-S1 small as marked loss of disc height and circumferential osteophytes. Musculotendinous structures: Musculotendinous structures demonstrate no abnormality. Musculature is symmetric.. Four miss muscles are symmetric. Sciatic nerves appear symmetric. No abnormal surrounding signal. Soft tissues: Unremarkable. Intrapelvic contents within normal limits. IMPRESSION: Symmetric piriform is muscles. The sciatic nerves appears metric and normal bilaterally. Degenerative changes in lower lumbar spine with bilateral neural foraminal narrowing at L5-S1. DATA REPOSITORY:
== END ==
PROVIDERS: PCP Nurse Practitioner Family; Visit Provider Preventive Medicine Occupational Medicine
DX: G57.02 Lesion of sciatic nerve, left lower limb (principal); M51.37 Other intervertebral disc degeneration, lumbosacral region
CPT/HCPCS: 72195

== ENCOUNTER → 2023-12-11 09:05 | Outpatient (BNVA) | payer MEDICARE, MEDICAID, SELFPAY | PROVIDERS: PCP Nurse Practitioner Family; Visit Provider Nurse Practitioner Gerontology | DX: N40.1 Benign prostatic hyperplasia with lower urinary tract symptoms (principal); R39.14 Feeling of incomplete bladder emptying | CPT/HCPCS: 51798; 99213 ==

== ENCOUNTER 2024-01-23 11:48 | Outpatient (REF) | payer MEDICARE, MEDICAID, SELFPAY ==
--- OUTSIDE RECORDS SUMMARY | 2024-01-23 11:50 | XMS_ITS | Encounter Summary ---
Author Organization [facility] Address [address] [place] [address] Care Team Providers Care Insulation Manager Name Role Phone Familia, Bianca Laurent SKEET OPERATOR Primary Care Provider [phone] Reason for Visit * Reason Comments Follow-up 6wk f/u vocal cord c a, dysphoniaThroat bugging since surgery, clearing a lot, eat drink getting acid reflux Encounter Details Date Type Department Care Team (Late st Contact Info) Description 09/19/2023 10:40 EDT Office Visit [facility] ENT- [address] [phone] Marcelino Godinez MD [address] [place] [address], Level [address] [place] [address] Carcinoma in situ of vocal [...] He initially presented to Dr. Torres at [facility] otolaryngology in [facility] in late 2021 with several months [...] tissue to evaluate for invasion. Diagnosis Comment Field Education Director slides of this case were reviewed at [...] symptoms for which he has been taking ruhx-fey-rzfgsdm omeprazole. No otalgia, hemoptysis or difficulty with [...] symptoms for which he has been taking tcph-pjc-lystuto omeprazole. 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
--- OUTSIDE RECORDS SUMMARY | 2024-01-23 11:50 | XMS_ITS | Referral Summary ---
Author Organization [facility] Address [address] [place] [address] Care Team Providers Care Public Health Dentist Name Role Phone Bianca Barbosa NP Primary Care Provider [phone] Encounters Date Type Department Care Team Description 01/02/2024 9:40 EDT Office Visit 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 [address] [place] [address] Marcelino Godinez MD Appointment Related from Last 3 Months Allergies Active Allergy [...] Take 1 Tablet by mouth daily. Active B.animalis,bifid,in fantis,long (PROBIOTIC 4X ORAL) Take by mouth. A ctive famotidine (PEPCID) 20 mg tablet Take 1 Tablet by mouth 2 times daily for 90 days. 60 Tablet 2 11/25/2023 02/23/2024 Active SUMAtriptan (IMITREX) 20 mg/actuation nasal spray Instill 1 [place] into both nostrils as needed for Migraine. 12/30/2023 Active Active Problems Problem Noted Date Diagnosed Date [...] Info) Description 07/09/2024 10:20 EST Office Visit [facility] ENT- [address] [address] Marcelino Godinez MD [address] [place] [address] 4 [place] [phone] Care Teams Public Health Dentist Relationship Specialty Start Date End Date Bianca Barbosa, KALIA [address] [place] [address] PCP - General Family Medicine - Primary Care 01/18/22
--- OUTSIDE RECORDS SUMMARY | 2024-01-23 11:50 | XMS_ITS | Encounter Summary ---
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 Subjective: Patient ID: Geraldo Hennessy is an 63 y.o. male. 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 He initially presented to Dr. Torres at [facility] otolaryngology in [facility] in late 2021 with several months of hoarseness. The patient described a raspy vocal quality and decreased range when singing in his truck. He does not do a lot of singing but has friends that do karaoke and was interested in participating more. Dr. Torres identified a white plaque-like lesion of the mid left true vocal fold on office laryngoscopy which prompted direct microlaryngoscopy in the operating room with biopsy in May 2022. Pathology showed no evidence of malignancy or dysplasia at that time. He had done well after this procedure although, his voice was slightly worse initially after surgery. No difficulty swallowing or breathing. No hemoptysis. He is having more chronic throat irritation, possibly related to a new combination inhaler. He is also vaping more marijuana lately. Flexible laryngoscopy my office in early April [...] tissue to evaluate for invasion. Diagnosis Comment Plumber slides of this case were reviewed at the intradepartmental consultation conference. Attestation There was significant resident/fellow involvement in the diagnostic evaluation of this case. By thesignature below, the attending physician certifies that they have personally conducted a gross and/or microscopic examination of the described specimens and rendered or confirmed the above diagnosis. at 1454 Overall, he is doing well. There is been some mild deterioration in voice which is intermittently hoarse and raspy. No hemoptysis. Mild sore throat and frequent throat clearing. No dysphagia Portions of this note copied from his prior encounter with me on 09/19/2023 have been updated and reviewed. Objective: There [...] Carcinoma in situ of vocal cord Yes Gastroesophageal reflux disease without esophagitis Chronic laryngitis Plan: Carcinoma in situ of the left [...] underlying vocal ligament or adjacent structures. Voice is improved from preop. He does have some vocal fatigue and strain, worse with increased voice use. He has also had more low-grade throat discomfort and intermittent hoarseness, likely related to a new steroid inhaler and GERD for which he was encouraged to rinse his mouth after use and continue the Pepcid as prescribed, respectively. He would also do better to stop vaping. Flexible laryngoscopy office today is also encouraging with a well-healed left vocal fold without evidence of residual or recurrent lesion. Given the healthy appearance of the left vocal fold on flexible laryngoscopy without evidence of recurrent lesion(s), continued observation is appropriate. He concurs. I will see him back in 6 months, sooner with deterioration voice or other problems/concerns. [...] Info) Description 07/09/2024 10:20 EST Office Visit [facility] ENT- Main [address] [phone] Marcelino Godinez MD [address] [place] [address], [address] [place] [phone] documented as of this encounter Visit Diagnoses Diagnosis Carcinoma in situ of vocal cord- Primary Carcinoma in situ of larynx Gastroesophageal reflux disease without esophagitis Esophageal reflux Chronic laryngitis documented in this encounter Historical Medications * This list may reflect changes made after this encounter. Medication Sig Dispensed Refills Start Date End Date SUMAtriptan (IMITREX) 20 mg/actuation nasal spray Instill 1 [place] into both nostrils as needed for Migraine. 12/30/2023 added in this encounter Care Teams Spinal Surgeon Relationship Specialty Start Date End Date Bianca Barbosa NP [address] [place] [address] PCP - General Family Medicine - Primary Care 01/18/22 documented as of this encounter
--- OUTSIDE RECORDS SUMMARY | 2024-01-23 11:50 | XMS_ITS | Encounter Summary ---
Author Organization [facility] Address [address] [place] [address] Care Team Providers Care Poultry Processing Supervisor Name Role Phone Bianca Barbosa BOX ORDER PERSON Primary Care Provider [phone] Reason for Visit * Reason Comments Post-OP Follow Up Encounter Details Date Type Department Care Team (Late st Contact Info) Description 08/08/2023 16:00 EDT Post-op Visit [facility] ENT- [address] [phone] Marcelino Godinez MD 111 [facility], [address] 4 [place] [address] Dysphonia (Primary Dx); Carcinoma in [...] fold lesion. He initially presented to Dr. Torres at [facility] otolaryngology in [facility] in late 2021 with several months [...] admits to relatively poor water intake. Dr. Torrse identified a white plaque-like lesion of the [...] tissue to evaluate for invasion. 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
--- OUTSIDE RECORDS SUMMARY | 2024-01-23 11:50 | XMS_ITS | Clinical Summary ---
Author Organization [facility] Address [address] [place] [address] Care Team Providers Care Labor Economist Name Role Phone Bianca Barbosa SADDLE STITCHER Primary Care Provider [phone] Allergies Active Allergy Reactions Criticality Noted Date [...] (IMITREX) 20 mg/actuation nasal spray Instill 1 [place] into both nostrils as needed for Migraine. 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); Gastroesophageal reflux disease without esophagitis; Chronic laryngitis 11/25/[address] [phone] Marcelino Godinez MD Appointment Related from Last 3 Months Surgical History Surgery [...] Info) Description 07/09/2024 10:20 EST Office Visit [address] [address] Marcelino Godinez MD [address] [place] [address], [address] [place] [phone] Health Maintenance Due Date Last Done Comments Hepatitis C Screen 1962 RSV Immunization ( o r 60+ Years) (1 - 1-dose 60+ series) 2022 COVID-19 Vaccine (2022-24 season) 2024 Care Teams Labor Economist Relationship Specialty Start Date End Date Bianca Barbosa NP [address] [place] [address] PCP - General Family Medicine - Primary Care 01/18/22
--- OUTSIDE RECORDS SUMMARY | 2024-01-23 11:50 | XMS_ITS | Encounter Summary ---
Author Organization [facility] Address [address] [place] [address] Care Team Providers Care Coding Quality Analyst Name Role Phone Bianca Barbosa INCISING MACHINE OPERATOR Primary Care Provider [phone] Reason for Visit * Reason Onset Date Comments Discuss Surgery 07/30/2023 Encounter Details Date Type Department Care Team (Late st Contact Info) Description 07/30/2023 Telephone [facility] ENT- [address] [phone] Marcelino Godinez MD [address] [facility], [address] [place] [address] Discuss Surgery Social History Tobacco [...] Telephone Encounter - Olivia Orellana - 07/30/2023 0088 EDT Adjunct Latin Professor contacted patient and confirmed the following: - [...] Info) Description 07/09/2024 10:20 EST Office Visit [facility] ENT- [address] [address] Marcelino Godinez MD [address] [facility], [address] [place] [phone] documented as of this encounter Visit Diagnoses Not on filedocumented in this encounter Care Teams Coding Quality Analyst Relationship Specialty Start Date End Date Bianca Barbosa NP [address] [place] [address] PCP - General Family Medicine - Primary Care 01/18/22 documented as of this encounter
--- OUTSIDE RECORDS SUMMARY | 2024-01-23 11:50 | XMS_ITS | Encounter Summary ---
Author Organization [facility] Address [address] [place] [address] Care Team Providers Care Pouncer Name Role Phone FamiliaBianca IT RECRUITER Primary Care Provider [phone] Reason for Visit * Reason Onset Date Comments New/Evolving Symptoms 08/16/2023 Question 08/16/2023 Encounter Details Date Type Department Care Team (Late st Contact Info) Description 08/16/[address] [facility] ENT- [address] [address] Marcelino Godinez MD 111 [facility], [address] [place] [address] New/Evolving Symptoms; Question Social History [...] Info) Description 07/09/2024 10:20 EST Office Visit [facility] ENT- Main [place] [address] [place], [place] [address] Marcelino Godinez MD 111 [facility], [address] [place] [phone] documented as of this encounter Visit Diagnoses Not on filedocumented in this encounter Care Teams Pouncer Relationship Specialty Start Date End Date Bianca Barbosa, KALIA [address] [place] [address] PCP - General Family Medicine - Primary Care 01/18/22 documented as of this encounter
--- OUTSIDE RECORDS SUMMARY | 2024-01-23 11:50 | XMS_ITS | Encounter Summary ---
Author Organization [facility] Address [address] [place] [address] Care Team Providers Care Tower Control Operator Name Role Phone Bianca Barbosa DIRECTOR OF EMPLOYER SERVICES Primary Care Provider [phone] Reason for Visit * Auth/Cert (Routine) Specialty Diagnoses / Procedures Referred By Jame garnica Referred To Contact Diagnoses Vocal fold leukoplakia Procedures [place] LARGSC EXC [place]&/STRPG CORDS/EPIGL MCRSCP/TLSCP MICROLARYNGOSCOPY, DIRECT, WITH VOCAL CORD LESION EXCISION Referral ID Status Reason Start Date Expiration Date Visits Re quested Visits Authorized [id number] 07/18/2023 07/17/2024 1 1 Encounter Details Date Type Department Care Team (Late st Contact Info) Description 07/31/2023 7:25 EDT - 07/31/2023 9:00 EDT Surgery [facility] OR [address] [place] [phone] Marcelino Godinez MD [address] [place] [address], Level [address] [place] [address] MICROLARYNGOSCOPY, DIRECT, WITH VOCAL CORD LESION EXCISION [[id number] (CPT??)] Surgery Details Date/Time Status Location OR Service Patient Class Case Cl ass Case Type Trauma Case? 07/31/23 0725 Posted [facility] OR [facility] E[facility] Hospita l Outpatient Surgery H - Elective Panel 1 Procedure LRB Anes Op Region Wound Class Comments MICROLARYNGOSCOPY, DIRECT, WITH VOCAL CORD LESION EXCISION Left General Throat Class II/ Clean Contaminated 1.25 hours (surgeon time) Ossoff laryngoscope, microscope, phonosurgical instruments 5-0 QUALITY CONTROL TESTER tube please Surgeon Surgeon Role Service Panel [...] SERVICE DATE: 07/31/2023 SURGEON: Marcelino Godinez MD SALES OPERATIONS ASSISTANT: RON HERRMANN MD PREOPERATIVE DIAGNOSIS: Left [...] Info) Description 07/09/2024 10:20 EST Office Visit [facility] ENT- [address] [phone] Marcelino Godinez MD [address] [place] [address], [address] [place] [address] documented as of this encounter [...] explore management options, if applicable. 08/02/2023 14:54 [facility] Final Diagnosis A. LARYNX, LEFT, SUBMITTED ''TRUE VOCAL CORD LESION'', BIOPSY: - Squamous cell carcinoma in situ. - Minimal subepithelial connective tissue to evaluate for invasion. 08/02/2023 14:54 [facility] Diagnosis Comment Director Script slides of this case were reviewed at the intradepartmental consultation conference. 08/02/2023 14:54 [facility] Attestation There was significant resident/fellow involvement in the diagnostic evaluation of this case. By the signature below, the attending physician certifies that they have personally conducted a gross and/or microscopic examination of the described specimens and rendered or confirmed the above diagnosis. 08/02/2023 14:54 [facility] at 1454 Clinical History Vocal fold leukoplakia 08/02/2023 14:54 [facility] Gross Description A. Received fresh labelled with proper patient identification (initials B, C) and left true vocal cord lesion is a single pink-white tissue (0.4 x 0.2 x 0.1 cm). Submitted intact in A1. Danelle Halley 07/31/2023 10:52 08/02/2023 14:54 [facility] Resident/Fell ow: Ghazala Mcconnell MD PhD 08/02/2023 14:54 [facility] Performing Lab [facility] 08/02/2023 14:54 [facility] Scanned Images 08/02/2023 14:54 [facility] Tissue LARYNGEAL STRUCTURE / Unknown 07/31/2023 8:22 EDT 07/31/2023 9:35 EDT Marcelino Godinez MD PATHOLOGY KATHY MERRILL [facility] [address] [place] [address] documented in this encounter Visit Diagnoses Diagnosis [...] 07/18 documented in this encounter Care Teams Tower Control Operator Relationship Specialty Start Date End Date Bianca Barbosa NP [address] [place] [address] PCP - General Family Medicine - Primary Care 01/18/22 documented as of this encounter
--- OUTSIDE RECORDS SUMMARY | 2024-01-23 11:50 | XMS_ITS | Encounter Summary ---
Author Organization [facility] Address [address] [place] [address] Care Team Providers Care Electronics Computer Mechanic Name Role Phone Bianca Barbosa WEATHERIZATION TECHNICIAN Primary Care Provider [phone] Reason for Visit * Reason Onset Date Comments Appointment Related 11/25/2023 Encounter Details Date Type Department Care Team (Late st Contact Info) Description 11/25/[address] [phone] Marcelino Godinez MD [address] [place] [address], [address] [place] [address] Appointment Related Social History Tobacco [...] Patient requestingprescription for Pepcid be sent to [phone] [phone] Please call patient with questions or concerns. documented in this encounter Plan of Treatment Upcoming Encounters Date Type Department Care Team (Late st Contact Info) Description 07/09/2024 10:20 EST Office Visit [facility] ENT- [facility] [address] [place], [place] [phone] Marcelino Godinez MD 111 [facility], [address] [place] [phone] documented as of this encounter Visit Diagnoses Not on filedocumented in this encounter Discontinued Medications Medication Sig Discontinue Reason Start Date End Da te omeprazole (PRILOSEC) 40 mg capsule Take 1 Capsule by mouth every morning. Alternate therapy 09/19/2023 11/25/2023 documented as of this encounter Care Teams Electronics Computer Mechanic Relationship Specialty Start Date End Date Bianca Barbosa NP [address] [place] [address] PCP - General Family Medicine - Primary Care 01/18/22 documented as of this encounter
--- OUTSIDE RECORDS SUMMARY | 2024-01-23 11:50 | XMS_ITS | Encounter Summary ---
Author Organization [facility] Address [address] [place] [address] Care Team Providers Care Stitch Marker Name Role Phone Bianca Barbosa KEY BED INSTALLER Primary Care Provider [phone] Reason for Visit * Auth/Cert (Routine) Specialty Diagnoses / Procedures [facility] Referred To Contact Diagnoses Vocal fold leukoplakia Procedures [place] LARGSC EXC [place]&/STRPG CORDS/EPIGL MCRSCP/TLSCP MICROLARYNGOSCOPY, DIRECT, WITH VOCAL CORD LESION EXCISION Referral ID Status Reason Start Date Expiration Date Visits Re quested Visits Authorized [id number] 07/18/2023 07/17/2024 1 1 Encounter Details Date Type Department Care Team (Late st Contact Info) Description 07/31/2023 7:29 EDT Anesthesia Event [facility] Main [place] OR [address] [place], [place] [address] Baron Walker MD MM [address] [address] Franco Benson CRNA [address] [address] Anesthesia Record Procedure Summary Procedure [...] and Staff Patient location during procedure: OR Resident/PERSONAL INJURY LITIGATION PARALEGAL: Franco Benson CRNA Performed: resident/PERSONAL INJURY LITIGATION PARALEGAL/AA Performed by: Franco Benson CRNA Authorized by: [...] with minimal volume to create seal. 5.0 TECHNICAL SERVICES REPRESENTATIVE * Anesthesia Preprocedure Evaluation - Jarrett Strauss [...] Info) Description 07/09/2024 10:20 EST Office Visit [facility] ENT- [address] 600[address] Marcelino Godinez MD [address] [place] [address], [address] [place] [address] documented as of this encounter Procedures Procedure Name Priority Date/Time Associated Diagnosis Comments ANESTHESIA INTUBATION Routine 07/31/2023 7:39 EDT documented in this encounter Results * [place] AN ELECTIVE ENDOTRACHEAL AIRWAY (07/31/2023 7:39 EDT) Narrative Franco Benson CRNA - 07/31/2023 7:39 EDT Franco Benson CRNA ? 07/31/2023 ??7:45 Airway Date/Time: 07/31/2023 7:39 Urgency: elective Airway not difficult General Information and Staff Patient location during procedure: OR Resident/PERSONAL INJURY LITIGATION PARALEGAL: Franco Benson CRNA Performed: resident/PERSONAL INJURY LITIGATION PARALEGAL/AA Performed by: Franco Benson CRNA Authorized by: [...] with minimal volume to create seal. 5.0 TECHNICAL SERVICES REPRESENTATIVE Baron MENDEZ ANESTHESIA ORDERABLES documented in this [...] mg documented in this encounter Care Teams Stitch Marker Relationship Specialty Start Date End Date Bianca Barbosa NP [address] [place] [address] PCP - General Family Medicine - Primary Care 01/18/22 documented as of this encounter
--- OUTSIDE RECORDS SUMMARY | 2024-01-23 11:50 | XMS_ITS | Encounter Summary ---
Author Organization [facility] Address [address] [place] [address] Care Team Providers Care Nicker Name Role Phone Bianca Barbosa MACHINE HOSE CUTTER Primary Care Provider [phone] Reason for Visit * Auth/Cert (Routine) Specialty Diagnoses / Procedures Referred By Jame garnica Referred To Contact Diagnoses Vocal fold leukoplakia Procedures [place] LARGSC EXC [place]&/STRPG CORDS/EPIGL MCRSCP/TLSCP MICROLARYNGOSCOPY, DIRECT, WITH VOCAL CORD LESION EXCISION Referral ID Status Reason Start Date Expiration Date Visits Re quested Visits Authorized [id number] 07/18/2023 07/17/2024 1 1 Encounter Details Date Type Department Care Team (Late st Contact Info) Description 07/31/2023 5:42 EDT - 07/31/2023 9:53 EDT Hospital Encounter [facility] OR [address] [place] [address] Marcelino Godinez MD [address] [place] [address], [facility] [address] [place] [address] Discharge Disposition: Home or Self [...] SERVICE DATE: 07/31/2023 SURGEON: Marcelino Godinez MD DEPUTY COUNTY ATTORNEY: RON HERRMANN MD PREOPERATIVE DIAGNOSIS: Left true [...] Info) Description 07/09/2024 10:20 EST Office Visit [facility] ENT- [address] [address] Marcelino Godinez MD [address] [place] [address], Level 4 [place] [address] documented as of this encounter [...] management options, if applicable. 08/02/2023 14:54 EDT [facility] Final Diagnosis A. LARYNX, LEFT, SUBMITTED ''TRUE VOCAL CORD LESION'', BIOPSY: - Squamous cell carcinoma in situ. - Minimal subepithelial connective tissue to evaluate for invasion. 08/02/2023 14:54 EDT [facility] Diagnosis Comment Cigarette Machine Operator slides of this case were reviewed at the intradepartmental consultation conference. 08/02/2023 14:54 EDT [facility] Attestation There was significant resident/fellow involvement in the diagnostic evaluation of this case. By the signature below, the attending physician certifies that they have personally conducted a gross and/or microscopic examination of the described specimens and rendered or confirmed the above diagnosis. 08/02/2023 14:54 T [facility] at 1454 Clinical History Vocal fold leukoplakia 08/02/2023 14:54 EDT [facility] Gross Description A. Received fresh labelled with proper patient identification (initials B, C) and left true vocal cord lesion is a single pink-white tissue (0.4 x 0.2 x 0.1 cm). Submitted intact in A1. Danelle Halley 07/31/2023 10:52 08/02/2023 14:54 EDT [facility] Resident/Fell ow: Ghazala Mcconnell MD PhD 08/02/2023 14:54 EDT [facility] Performing Lab [facility] 08/02/2023 14:54 T [facility] Scanned Images 08/02/2023 14:54 [facility] Tissue LARYNGEAL STRUCTURE / Unknown 07/31/2023 8:22 EDT 07/31/2023 9:35 EDT Marcelino Godinez MD PATHOLOGY KATHY MERRILL [facility] [address] [place] [address] documented in this encounter Visit Diagnoses Diagnosis [...] 07/18 documented in this encounter Care Teams Nicker Relationship Specialty Start Date End Date Bianca Barbosa NP [address] [place] [address] PCP - General Family Medicine - Primary Care 01/18/22 documented as of this encounter
--- OUTSIDE RECORDS SUMMARY | 2024-01-23 11:51 | XMS_ITS | Encounter Summary ---
Author Organization [facility] Address [address] [place] [address] Care Team Providers Care Terra Cotta Roofer Helper Name Role Phone FamiliaBiacna FINISHING TRIMMER Primary Care Provider [phone] Reason for Visit * Reason Onset Date Comments Surgery Scheduling 05/23/2023 Encounter Details Date Type Department Care Team (Late st Contact Info) Description 05/23/2023 Telephone [facility] ENT- [address] [phone] Marcelino Godinez MD [address] [facility], Level [address] [place] [address] Surgery Scheduling Social History Tobacco [...] Info) Description 07/09/2024 10:20 EST Office Visit [facility] ENT- [address] [phone] Marcelino Godinez MD [address] [facility], [facility] [address] [place] [address] documented as of this encounter Visit Diagnoses Diagnosis Vocal fold leukoplakia- Primary Other diseases of vocal cords documented in this encounter Orders Case Request Count Last Ordered Date First Orde red Date CASE REQUEST OPERATING ROOM 1 05/23/2023 documented in this encounter Care Teams Terra Cotta Roofer Helper Relationship Specialty Start Date End Date Bianca Barbosa NP [address] [place] [address] PCP - General Family Medicine - Primary Care 01/18/22 documented as of this encounter
--- OUTSIDE RECORDS SUMMARY | 2024-01-23 11:51 | XMS_ITS | Encounter Summary ---
Author Organization [facility] Address [address] [place] [address] Care Team Providers Care Air And Water Tester Name Role Phone Bianca Barbosa AUTOMOTIVE LUBE TECHNICIAN Primary Care Provider [phone] Encounter Details Date Type Department Care Team (Latest Contact Info) Description 07/24/2023 10:30 EST - 07/24/2023 23:59 EST Hospital Encounter [facility] Pre-Surgical Testing [address] [place], [place] [address] Discharge Disposition: Home or Self Care Social [...] pick you up to assist with medication last picker from pharmacy, review of discharge instructions and surgical consult. We ask that your ride stay within 15 minutes of the hospital for last picker. CPAP/BiPAP Bring your CPAP or BiPAP machine in with you on the day of your surgery. Nail qatari and Jewelry Remove all finger nail qatari and makeup before surgery Remove all jewelry [...] Bring Crutches if needed. Use the Volumetric Surveillance Systems Engineer given to you by your surgeon or [...] campus of surgery. For Day of Surgery: [facility] [place]: [phone]; [facility] [place]; [phone]. Prior to Day of Surgery call: [phone]. Pre-op toll Free Number . More information can also be found on our website: [email or web address] documented in this encounter Plan of Treatment Upcoming Encounters Date Type Department Care Team (Late st Contact Info) Description 07/09/2024 10:20 EST Office Visit [facility] ENT- Main [address] [address] Marcelino Godinez MD [address] [place] [address], Level [address] [place] [address] documented as of this encounter [...] days. added in this encounter Care Teams Air And Water Tester Relationship Specialty Start Date End Date Bianca Barbosa, AUTOMOTIVE LUBE TECHNICIAN [facility] [place] [address] PCP - General Family Medicine - Primary Care 01/18/22 documented as of this encounter
--- OUTSIDE RECORDS SUMMARY | 2024-01-23 11:51 | XMS_ITS | Encounter Summary ---
Author Organization [facility] [place] [address] Care Team Providers Care Knife Setter Name Role Phone Bianca Barbosa APRN Primary Care Provider [phone] Reason for Visit * Reason Comments Skin Check * Consultation (Routine) - Closed Specialty Diagnoses / Procedures Referred By Jame garnica Referred To Contact Dermatology Diagnoses Personal history of other malignant neoplasm of skin Personal history of diseases of the skin and subcutaneous tissue Bianca Barbosa APRN [address] [place] [address] [facility] [address] [place] [phone] Referral ID Status Reason Start Date Expiration Date Visits Re quested Visits Authorized [id number] Closed 05/01/2022 05/01/2023 1 1 Encounter Details Date Type Department Care Team (Late st Contact Info) Description 05/22/2022 9:30 AM EST Office Visit Dermatology at [address] [address] Richie Stallworth MD [address] [place] [address], [facility] [place] [address] History of basal cell carcinoma; [...] carcinoma. His family has a farm in [place]. He lived for a number of years in [place] and then many years also in [place] in the [place] area. He is now moved back to the [facility]. He was previously followed by Dr. Dougherty who is his questioned documents examiner in [place]. That while there he received 3 treatments [...] cream given to him by his prior questioned documents examiner twice daily for 7 days, then off [...] keratosis documented in this encounter Care Teams Knife Setter Relationship Specialty Start Date End Date [place] [address] PCP - General Family Medicine 05/22/22 documented as of this encounter
--- OUTSIDE RECORDS SUMMARY | 2024-01-23 11:51 | XMS_ITS | Encounter Summary ---
Author Organization [facility] Address [address] [place] [address] Care Team Providers Care Preforming Machine Operator Name Role Phone Familia, Bianca Anastasiia BACK SEAM STITCHER Primary Care Provider [phone] Encounter Details Date Type Department Care Team (Late st Contact Info) Description 02/26/2022 Lab Requisition [facility] Pathology & Laboratory Medicine - [address] [address] Biju Torres MD [address] [place] [address] Encounter for other general examination Social History [...] Info) Description 07/09/2024 10:20 EST Office Visit [facility] ENT- [address] [address] Marcelino Godinez MD 111 [facility], [facility] 4 [place] [phone] documented as of this encounter Procedures Procedure [...] explore management options, if applicable. 02/28/2022 10:33 [facility] Final Diagnosis A. NASAL SEPTUM, SEPTOPLASTY: - Fragments of cartilage consistent with nasal septum with no specific gross pathology features. Gross only. 02/28/2022 10:33 [facility] Attestation By the signature below, the attending physician certifies that they have 1) personally conducted a gross and/or microscopic examination of the described specimen(s), and/or personally interpreted the results of laboratory testing of the described specimen(s), and 2) personally rendered or confirmed the above diagnosis. 02/28/2022 10:33 [facility] at 1033 Clinical History Deviated nasal septum 02/28/2022 10:33 [facility] Gross Description [...] only. VINITA MG(ASCP) 02/27/2022 8:02 02/28/2022 10:33 [facility] Performing Lab [facility] 02/28/2022 10:33 [facility] Scanned Images 02/28/2022 10:33 [facility] Tissue ENTIRE NASAL SEPTUM / Unknown 02/26/2022 12:03 EDT 02/26/2022 21:14 EDT Biju Torres MD PATHOLOGY ORDERABLES [facility] [address] [place] [address] documented in this encounter Visit Diagnoses Diagnosis Encounter for other general examination documented in this encounter Care Teams Preforming Machine Operator Relationship Specialty Start Date End Date Bianca Barbosa NP [address] [place] [address] PCP - General Family Medicine - Primary Care 01/18/22 documented as of this encounter
--- OUTSIDE RECORDS SUMMARY | 2024-01-23 11:51 | XMS_ITS | Encounter Summary ---
[place] [address] Care Team Providers Care Med Specialist Name Role Phone Bianca Barbosa APRN Primary Care Provider Encounter Details Date Type Department Care Team [...] on filedocumented in this encounter Care Teams Med Specialist Relationship Specialty Start Date End Date Bianca Barbosa [place] [address] PCP - General Family Medicine 05/22/22 documented as of this encounter
--- OUTSIDE RECORDS SUMMARY | 2024-01-23 11:51 | XMS_ITS | Clinical Summary ---
Author Organization [facility] [place] [address] Care Team Providers Care Electronic System Engineer Name Role Phone Bianca Barbosa APRN Primary Care Provider [phone] Allergies Active Allergy Reactions Criticality Noted Date [...] Advance Directive 2017 Covid-19 Vaccine ( season) 2024 Influenza (Flu) vaccine (1 o f 1 - Influenza standard series) 01/19/2024 Care Teams Electronic System Engineer Relationship Specialty Start Date End Date Bianca Barbosa, COSMETIC DENTIST [facility] [place] [address] PCP - General Family Medicine 05/22/22
--- OUTSIDE RECORDS SUMMARY | 2024-01-23 11:51 | XMS_ITS | Encounter Summary ---
Author Organization [facility] Address [address] [place] [address] Care Team Providers Care Mailmaster Name Role Phone Familia, Bianca Anastasiia STEAM TENDER Primary Care Provider [phone] Encounter Details Date Type Department Care Team (Late st Contact Info) Description 06/04/2022 Lab Requisition [facility] Pathology & Laboratory Medicine - [address] [address] Biju Torres MD [address] [place] [address] Encounter for other general examination Social History [...] Info) Description 07/09/2024 10:20 EST Office Visit [facility] ENT- [address] [phone] Marcelino Godinez MD 111 [facility], [facility] 4 [place] [phone] documented as of this encounter Procedures Procedure [...] explore management options, if applicable. 06/06/2022 8:59 [facility] Final Diagnosis A. LARYNX, LEFT TRUE VOCAL CORD, BIOPSY: - Squamous mucosa with mild chronic inflammation and subepithelial myxoid change. - No high grade dysplasia identified. 06/06/2022 8:59 EST [facility] Attestation By the signature below, the attending physician certifies that they have 1) personally conducted a gross and/or microscopic examination of the described specimen(s), and/or personally interpreted the results of laboratory testing of the described specimen(s), and 2) personally rendered or confirmed the above diagnosis. 06/06/2022 8:59 [facility] at 0859 Clinical History Change in voice 06/06/2022 8:59 [facility] Gross Description A. Received in formalin labelled with proper patient identification (initials B, C) and true vocal cord Bx L is a membranous pale canales tissue less than 0.1 cm in greatest dimension. Entirely submitted in A1 VINITA EM(ASCP) 06/04/2022 17:41 06/06/2022 8:59 EST [facility] Performing Lab [facility] 06/06/2022 8:59 EST [facility] Scanned Images 06/06/2022 8:59 [facility] Tissue ENTIRE LARYNX / Unknown 06/04/2022 10:48 EST 06/04/2022 17:30 EST Biju Torres MD PATHOLOGY ORDERABLES [facility] [address] [place] [address] documented in this encounter Visit Diagnoses Diagnosis Encounter for other general examination documented in this encounter Care Teams Mailmaster Relationship Specialty Start Date End Date Bianca Barbosa KALIA [address] [place] [address] PCP - General Family Medicine - Primary Care 01/18/22 documented as of this encounter
--- OUTSIDE RECORDS SUMMARY | 2024-01-23 11:51 | XMS_ITS | Encounter Summary ---
Author Organization [facility] Address [address] [place] [address] Care Team Providers Care Can Repairer Name Role Phone Bianca Barbosa ACCOUNT EXECUTIVE KEY ACCOUNTS Primary Care Provider [phone] Reason for Visit * Reason Comments Vocal Cord Dysfunction * Referral (Routine) - Receiving Office to Obtain Authorization Specialty Diagnoses / Procedures [facility] Referred To Contact Otolaryngology Diagnoses Other diseases of vocal cords Unspecified voice and resonance disorder Biju Torres MD [address] [place] [address] Marcelino Godinez MD [address] [place] [phone] Referral ID Status Reason Start Date Expiration Date Visits Requested Visits Authorized [id number] Receiving Office to Obtain Authorization 1 1 Encounter Details Date Type Department Care Team (Late st Contact Info) Description 04/19/2023 8:00 EST Office Visit [facility] ENT- [address] [address] Marcelino Godinez MD [address] [place] [phone] Dysphonia (Primary Dx); Chronic laryngitis; Vocal [...] voice. He initially presented [facility] otol[facility]ology in [facility] in late 2021 with 1 to 2 [...] Info) Description 07/09/2024 10:20 EST Office Visit [facility] ENT- [address] [address] Marcelino Godinez MD [address] [place] [address], Level [address] [place] [phone] documented as of this encounter Visit Diagnoses [...] Wheezing. added in this encounter Care Teams Can Repairer Relationship Specialty Start Date End Date Bianca Barbosa NP [address] [place] [address] PCP - General Family Medicine - Primary Care 01/18/22 documented as of this encounter
[2024-01-23 19:30] LABS: HGB 14.4 g/dL (13.5-17.5); MCH 32.1 pg (27.0-33.0); MCHC 34.3 % (32.0-36.0); MCV 94 fL (80-95); MPV 9.3 fL (8.0-11.0); Platelet Count 269 10^3/uL (130-400); RBC 4.49 10^6/uL (4.36-5.78); RDW 12.6 % (11.8-14.1); RDW-SD 43.1 fL; WBC 7.31 10^3/uL (4.4-10.8)
[2024-01-23 19:49] LABS: ALT 29 U/L (16-63); AST 19 U/L (15-37); Albumin 4.5 g/dL (3.4-5.0); Alkaline Phosphatase 80 U/L (46-116); Anion Gap 9.1 mmol/L (3-11); BUN 14 mg/dL (7-18); Bilirubin, Total 0.77 mg/dL (0.2-1.0); CO2 27.9 mmol/L (21.0-32.0); CREATININE 1.1 mg/dL (0.70-1.30); Calcium 9.6 mg/dL (8.5-10.1); Calculated LDL 93 mg/dL (<100); Chloride 104 mmol/L (98-107); Cholesterol 167 mg/dL (<200); Estimated GFR 76.37 (mL/min/1.73m2); Glucose 107 mg/dL (74-106); HDL Cholesterol 59 mg/dL (40-60); Potassium 4.3 mmol/L (3.5-5.1); Sodium 141 mmol/L (136-145); Total Protein 7.5 g/dL (6.4-8.2); Triglyceride 76 mg/dL (<150)
[2024-01-23 21:15] LABS: Iron 75 ug/dL (65-175); Total Iron Binding Capacity 329 ug/dL (250-450); Transferrin Sat 23 % (20-55)
== END 2024-01-23 11:49 | disposition home or self-care (01) ==
LOC: NCHCN 11:48
PROVIDERS: PCP Nurse Practitioner Family; Visit Provider Nurse Practitioner Family
DX: G25.81 Restless legs syndrome (principal)
CPT/HCPCS: 80053; 80061; 85027; 83540; 83550

== ENCOUNTER → 2024-03-05 07:58 | Outpatient (BNVA) | payer MEDICARE, MEDICAID, SELFPAY | PROVIDERS: PCP Nurse Practitioner Family; Referring Provider Nurse Practitioner Family; Visit Provider Nurse Practitioner Adult Health | DX: G43.009 Migraine without aura, not intractable, without status migrainosus (principal); G43.109 Migraine with aura, not intractable, without status migrainosus | CPT/HCPCS: 99213 ==

== ENCOUNTER 2024-04-15 13:12 | Outpatient (CLI) | payer MEDICARE, MEDICAID, SELFPAY ==
--- NOTE | 2024-04-15 | DI.RAD_ITS ---
Exam(s) XR HAND RT COMPLETE EXAM: XR HAND RT COMPLETE CLINICAL HISTORY: ARTHRITIS RT HAND M13.841 KNOWN HX, RECENT TRAUMA, R/O FX. TECHNIQUE: 2D digital imaging was performed of the right hand. Three images were obtained. AP, late ral and oblique views were obtained. COMPARISON: No exams were available for comparison FINDINGS: BONES: No acute fracture is present. No bony destructive lesion is seen. JOINTS: No dislocation present. There is marked arthrosis of the wrist particularly the radiocarpal j oint in the 1st carpometacarpal joint. SOFT TISSUE: Normal. IMPRESSION: No acute fracture or dislocation. DATA REPOSITORY: RADIATION DOSE DELIVERED:
--- OUTSIDE RECORDS SUMMARY | 2024-04-15 13:14 | XMS_ITS | Referral Summary ---
Author Organization [facility] Address [address] [place] [address] Care Team Providers Care Manager Front Name Role Phone Bianca Barbosa GASOLINE TESTER Primary Care Provider [phone] Encounters Date Type Department Care Team Description 02/05/[address] [phone] Marcelino Godinez MD Appointment Related 01/28/[address] [phone] Marcelino Godinez MD Appointment Related from Last 3 Months Allergies Active Allergy Reactions Criticality Noted Date Comments Coconut Anaphylaxis High 08/08/2023 Codeine Anaphylaxis High 07/24/2023 Coffee Anaphylaxis High 07/31/2023 It's the coffee Perla only. Medications albuterol (VENTOLIN HFA) 90 mcg/actuation inhaler Inhale [...] Take 1 Tablet by mouth daily. Active fremanezumab-vf rm (AJOVY SYRINGE) 225 mg/1.5 mL syringe Inject 1.5 mL into the skin every 28 days. Active atorvastatin (LIPITOR) 10 mg tablet Take 1 Tablet by mouth daily. AM Active umeclidinium bromide (INCRUSE ELLIPTA INHALATION) Inhale 1 Puff as directed daily. Active Multivitamins with Minerals tablet tablet Take 1 Tablet by mouth daily. Active B.animalis,bifi d,infantis,long (PROBIOTIC 4X ORAL) Take by mouth. Active SUMAtriptan (IMITREX) 20 mg/actuation nasal spray Instill 1 [place] into both nostrils as needed for Migraine. [...] Recorded Sex Assigned at Not on file Legal Sex Male 21:12 EDT Gender Identity Male 04/19/2023 11:26 EST Sexual [...] Office Visit [facility] [place] [address] Marcelino Godinez MD [address] [place] [address], Level [address] [place] [phone] Insurance [facility] MEDICARE [facility] Health Advantage GL Address: [facility] [address] [place] [phone] MEDICAID [place] Care Teams Manager Front Relationship Specialty Start Date End Date Bianca Barbosa NP [address] [place] [address] PCP - General Family Medicine - Primary Care 01/18/22
--- OUTSIDE RECORDS SUMMARY | 2024-04-15 13:14 | XMS_ITS | Encounter Summary ---
Author Organization [facility] Address [address] [place] [address] Care Team Providers Care Parking Control Officer Name Role Phone Bianca Barbosa ENGINEERING DESIGNER Primary Care Provider [phone] Reason for Visit * Reason Onset Date Comments Appointment Related 11/25/2023 Encounter Details Date Type Department Care Team (Late st Contact Info) Description 11/25/[address] [phone] Marcelino Godinez MD [address] [place] [address], Level [address] [place] [address] Appointment Related Social History Tobacco [...] of this encounter Ordered Prescriptions Prescription Sig Dispense Quantity Refills Last Filled Start Date End Date famotidine (PEPCID) 20 mg tablet Take 1 Tablet by mouth 2 times daily for 90 days. 60 Tablet 2 11/25/2023 02/23/2024 documented in this encounter Miscellaneous Notes * Telephone Encounter - Olivia Orellana - 11/25/2023 0910 EDT Patient called, states they were having a lot of acid reflux after surgery and Dr. Godinez prescribed Omeprazole however that is messing with patients stomach, causing really bad cramping. Patient spoke with a pharmacist they work with and was recommended they request Pepcid. Patient requestingprescription for Pepcid be sent to [facility] [address] [phone] Please call patient with questions or concerns. documented in this encounter Plan of Treatment Upcoming Encounters Date Type Department Care Team (Late st Contact Info) Description 07/09/2024 10:20 EST Office Visit [facility] ENT- [address] [phone] Marcelino Godinez MD [address] [place] [address], [facility] 4 [place] [phone] documented as of this encounter Visit Diagnoses Not on filedocumented in this encounter Discontinued Medications Medication Sig Discontinue Reason Start Date End Da te omeprazole (PRILOSEC) 40 mg capsule Take 1 Capsule by mouth every morning. Alternate therapy 09/19/2023 11/25/2023 documented as of this encounter Care Teams Parking Control Officer Relationship Specialty Start Date End Date Bianca Barbosa NP [address] [place] [address] PCP - General Family Medicine - Primary Care 01/18/22 documented as of this encounter
--- OUTSIDE RECORDS SUMMARY | 2024-04-15 13:14 | XMS_ITS | Clinical Summary ---
Author Organization [facility] Address [address] [place] [address] Care Team Providers Care Lubrication Technician Name Role Phone Bianca Barbosa ARTIST CONSULTANT Primary Care Provider [phone] Allergies Active Allergy Reactions Criticality Noted Date [...] (IMITREX) 20 mg/actuation nasal spray Instill 1 [place] into both nostrils as needed for Migraine. 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 Encounters Date Type Department Care Team Description 02/05/[address] [phone] Marcelino Godinez MD Appointment Related 01/28/[address] [phone] Marcelino Godinez MD Appointment Related from Last [...] Info) Description 07/09/2024 10:20 EST Office Visit [facility] ENT- [address] [address] Marcelino Godinez MD [address] [place] [address], Level 4 [place] [address] Health Maintenance Due Date Last Done Comments Hepatitis C Screen 1960 COVID-19 Vaccine (2023-25 season) 2024 RSV Immunization ( o r 60+ Years) (1 - 1-dose 75+ series) 2037 Insurance [facility] MEDICARE [facility] Member Subscriber Plan / Payer (Ef fective 2021-Present) Name:Geraldo Hennessy Relation to Subscriber:Self Name:Geraldo Hennessy Payer ID:Not on file Type:[facility] Health Advantage GL Address: [place] [id number] MEDICAID [place] Care Teams Lubrication Technician Relationship Specialty Start Date End Date Bianca Barbosa NP [address] [place] [address] PCP - General Family Medicine - Primary Care 01/18/22
--- OUTSIDE RECORDS SUMMARY | 2024-04-15 13:14 | XMS_ITS | Encounter Summary ---
Author Organization [facility] Address [address] [place] [address] Care Team Providers Care Latexer Name Role Phone FamiliaBianca PILING SETTER Primary Care Provider [phone] Reason for Visit * Reason Onset Date Comments New/Evolving Symptoms 08/16/2023 Question 08/16/2023 Encounter Details Date Type Department Care Team (Late st Contact Info) Description 08/16/2023 Telephone [facility] ENT- [address] [address] Marcelino Godinez MD 111 [facility], Level 4 [place] [address] New/Evolving Symptoms; Question Social History [...] Encounter - Roxann Damon RN - 08/16/2023 3472 EDT Detailed message left for the patient [...] 07/09/2024 10:20 EST Office Visit [facility] ENT- [facility] [address] [place] [address] Marcelino Godinez MD 111 [facility], Level 4 [place] [phone] documented as of this encounter Visit Diagnoses Not on filedocumented in this encounter Care Teams Latexer Relationship Specialty Start Date End Date Bianca Barbosa NP [address] [place] [address] PCP - General Family Medicine - Primary Care 01/18/22 documented as of this encounter
--- OUTSIDE RECORDS SUMMARY | 2024-04-15 13:14 | XMS_ITS | Encounter Summary ---
Author Organization [facility] Address [address] [place] [address] Care Team Providers Care Engineering Operations Leader Name Role Phone Familia, Bianca Laurent HIGHWAY PATROL OFFICER Primary Care Provider [phone] Reason for Visit * Reason Comments Follow-up 6wk f/u vocal cord c a, dysphoniaThroat bugging since surgery, clearing a lot, eat drink getting acid reflux Encounter Details Date Type Department Care Team (Late st Contact Info) Description 09/19/2023 10:40 EDT Office Visit [facility] ENT- [address] [phone] Marcelino Godinez MD [address] [place] [address], Level 4 [place] [address] Carcinoma in situ of vocal [...] Refills Last Filled Start Date End Date omeprazole (PRILOSEC) 40 mg capsule Take 1 Capsule by mouth every morning. 30 Capsule 11 09/19/2023 07/08/202 4 documented in this encounter Progress Notes * [...] Torres at [facility] otolaryngology in [facility] in late 2021 with several months [...] tissue to evaluate for invasion. Diagnosis Comment Postal Supervisor slides of this case were reviewed at [...] symptoms for which he has been taking plxo-weq-dqmrxtp omeprazole. No otalgia, hemoptysis or difficulty with [...] symptoms for which he has been taking xtie-nhs-wahkzyz omeprazole. 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
--- OUTSIDE RECORDS SUMMARY | 2024-04-15 13:14 | XMS_ITS | Encounter Summary ---
Author Organization [facility] Address [address] [place] [address] Care Team Providers Care Pot Fluxer Name Role Phone Bianca Barbosa TUBE BENDING MACHINE OPERATOR Primary Care Provider Reason for Visit * Reason Onset Date Comments Appointment Related 01/28/2024 Encounter Details Date Type Department Care Team (Late st Contact Info) Description 01/28/2024 Telephone [facility]- [address] [phone] Marcelino Godinez MD 111 [facility], Level 4 [place] [address] Appointment Related Social History Tobacco [...] Telephone Encounter - Roxann Damon RN - 01/28/2024 5769 EDT Spoke with the patient explained Dr. Godinez recommendations for follow up. He verbalized understanding and agreed. We will keep the appointment on 07/09/24 as scheduled for now and cancel as we getcloser to the appointment. * Telephone Encounter - Marcelino Godinez MD - 01/28/2024 1550 EDT I think that is reasonable but only if Dr. 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 Either way, he definitely needs to have continued follow-up. Marcelino Godinez MD * Telephone Encounter - Vikki Maxwell - 01/28/2024 1439 EDT Spoke to Geraldo, he called to find out if he can cancel his appointment with Dr. Godinez in 06/2024 and follow up with the referring provider Dr. Torres instead in [facility] documented in this encounter Plan of Treatment Upcoming Encounters Date Type Department Care Team (Late st Contact Info) Description 07/09/2024 10:20 EST Office Visit [facility] ENT- [address] [address] Marcelino Godinez MD 111 [facility], Level 4 [place] [address] documented as of this encounter Visit Diagnoses Not on filedocumented in this encounter Care Teams Pot Fluxer Relationship Specialty Start Date End Date Bianca Barbosa NP [address] [place] [address] PCP - General Family Medicine - Primary Care 01/18/22 documented as of this encounter
--- OUTSIDE RECORDS SUMMARY | 2024-04-15 13:14 | XMS_ITS | Encounter Summary ---
Author Organization [facility] Address [address] [place] [address] Care Team Providers Care Installation Manager Name Role Phone Bianca Barbosa TUB WASHER Primary Care Provider Reason for Visit * Reason Onset Date Comments Appointment Related 02/05/2024 Encounter Details Date Type Department Care Team (Late st Contact Info) Description 02/05/2024 Telephone [facility]- [address] [phone] Marcelino Godinez MD [address] [place] [address], Level 4 [place] [address] Appointment Related Social History Tobacco [...] encounter Miscellaneous Notes * Telephone Encounter - Shari Maxwellasha - 02/05/2024 1116 EDT Spoke to Geraldo, faxed over office notes/post op from 08/08/2023,09/19/2023 and 01/02/[address] Biju Torres as requested by patient. documented in this encounter Plan of Treatment Upcoming Encounters Date Type Department Care Team (Late st Contact Info) Description 07/09/2024 10:20 EST Office Visit [facility] ENT- [address] [phone] Marcelino Godinez MD 111 [facility], Level 4 [place] [phone] documented as of this encounter Visit Diagnoses Not on filedocumented in this encounter Care Teams Installation Manager Relationship Specialty Start Date End Date Bianca Barbosa NP [address] [place] [address] PCP - General Family Medicine - Primary Care 01/18/22 documented as of this encounter
--- OUTSIDE RECORDS SUMMARY | 2024-04-15 13:14 | XMS_ITS | Encounter Summary ---
Author Organization [facility] Address [address] [place] [address] Care Team Providers Care Nuclear Auxiliary Operator Name Role Phone Bianca Barbosa SUMMONS SERVER Primary Care Provider [phone] Reason for Visit * Reason Comments Follow-up Vocal cord cancer, d ysphoniaTrouble breathing through nose Encounter Details Date Type Department Care Team (Late st Contact Info) Description 01/02/2024 9:40 EDT Office Visit [facility] ENT- [address] [phone] Marcelino Godinez MD 111 [facility], Level 4 [place] [address] Carcinoma in situ of vocal [...] He initially presented to Dr. Torres at [facility] otolaryngology in [facility] in late 2021 with several months of [...] tissue to evaluate for invasion. 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 SUMAtriptan (IMITREX) 20 mg/actuation nasal spray Instill 1 [place] into both nostrils as needed for Migraine. 12/30/2023 added in this encounter Care Teams Nuclear Auxiliary Operator Relationship Specialty Start Date End Date Bianca Barbosa NP [address] [place] [address] PCP - General Family Medicine - Primary Care 01/18/22 documented as of this encounter
--- OUTSIDE RECORDS SUMMARY | 2024-04-15 13:15 | XMS_ITS | Encounter Summary ---
Author Organization [facility] Address [address] [place] [address] Care Team Providers Care Threading Machine Operator Name Role Phone Familia, Bianca Laurent IRRIGATION LABORER Primary Care Provider Reason for Visit * Reason Onset Date Comments Surgery Scheduling 05/23/2023 Encounter Details Date Type Department Care Team (Late st Contact Info) Description 05/23/2023 Telephone [facility] ENT- [address] [phone] Marcelino Godinez MD 111 [facility], Level 4 [place] [address] Surgery Scheduling Social History Tobacco [...] Marcelino Godinez MD * Telephone Encounter - Yung Maryam - 05/23/2023 1017 EST Patient has decided he would like to move forward with surgery please put in a case request Thanks documented in this encounter Plan of Treatment Upcoming Encounters Date Type Department Care Team (Late st Contact Info) Description 07/09/2024 10:20 EST Office Visit [facility] ENT- [address] [address] HerbertMarcelino reese MD [address] [place] [address] 4 [place] [phone] documented as of this encounter Visit Diagnoses Diagnosis 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
--- OUTSIDE RECORDS SUMMARY | 2024-04-15 13:15 | XMS_ITS | Encounter Summary ---
Author Organization [facility] Address [address] [place] [address] Care Team Providers Care Meat Loiner Name Role Phone Bianca Barbosa ROLL OPERATOR Primary Care Provider [phone] Reason for Visit * Auth/Cert (Routine) Specialty Diagnoses / Procedures Referred By Jame garnica Referred To Contact Diagnoses Vocal fold leukoplakia Procedures [place] LARGSC EXC [place]&/STRPG CORDS/EPIGL MCRSCP/TLSCP MICROLARYNGOSCOPY, DIRECT, WITH VOCAL CORD LESION EXCISION Referral ID Status Reason Start Date Expiration Date Visits Re quested Visits Authorized [id number] 07/18/2023 07/17/2024 1 1 Encounter Details Date Type Department Care Team (Late st Contact Info) Description 07/31/2023 7:25 EDT - 07/31/2023 9:00 EDT Surgery [facility] OR [address] [place] [phone] Marcelino Godinez MD [address] [place] [address], Level 4 [place] [address] MICROLARYNGOSCOPY, DIRECT, WITH VOCAL CORD LESION EXCISION [[id number] (CPT??)] Surgery Details Date/Time Status Location OR Service Patient Class Case Cl ass Case Type Trauma Case? 07/31/2023 0725 Posted [facility] OR [facility] Hospital Outpatient Surgery H - Elective Panel 1 Procedure LRB Anes Op Region Wound Class Comments MICROLARYNGOSCOPY, DIRECT, WITH VOCAL CORD LESION EXCISION Left General Throat Class II/ Clean Contaminated 1.25 hours (surgeon time) Ossoff laryngoscope, microscope, phonosurgical instruments 5-0 JUTE BAG SEWER tube please Surgeon Surgeon Role Service Panel [...] this encounter Medications at Time of Discharge albuterol (VENTOLIN HFA) 90 mcg/actuation inhaler Inhale 2 Puffs as directed every 6 hours as needed for Wheezing. amLODIPine (NORVASC) 5 mg tablet Take 1 Tablet by mouth daily. atorvastatin (LIPITOR) 10 mg tablet Take 1 Tablet by mouth daily. AM B.animalis,bifid, infantis,long (PROBIOTIC 4X ORAL) Take by mouth. fluticasone [...] documented below RON HERRMANN MD 07/31/2023 7:05 Cosigned by Marcelino Godinez MD at 07/31/2023 7:34 EDT Source Note - Bianca Barbosa NP - 07/30/2023 0:00 EDT documented in this encounter OR Notes * OR Surgeon - Marcelino Godinez MD - 07/31/2023 0834 EDT Images from the original note were not included. OPERATIVE REPORT SERVICE DATE: 07/31/2023 SURGEON: Marcelino Godinez MD FISH FARM LABORER: RON HERRMANN MD PREOPERATIVE DIAGNOSIS: Left true [...] Info) Description 07/09/2024 10:20 EST Office Visit [facility] ENT- Main [address] [phone] Marcelino Godinez MD [address] [place] [address], Level 4 [place] [address] documented as of this encounter [...] explore management options, if applicable. 08/02/2023 14:54 [facility] Final Diagnosis A. LARYNX, LEFT, SUBMITTED ''TRUE VOCAL CORD LESION'', BIOPSY: - Squamous cell carcinoma in situ. - Minimal subepithelial connective tissue to evaluate for invasion. 08/02/2023 14:54 [facility] Diagnosis Comment Biology Teacher slides of this case were reviewed at the intradepartmental consultation conference. 08/02/2023 14:54 [facility] Attestation There was significant resident/fellow involvement in the diagnostic evaluation of this case. By the signature below, the attending physician certifies that they have personally conducted a gross and/or microscopic examination of the described specimens and rendered or confirmed the above diagnosis. 08/02/2023 14:54 [facility] at 1454 Clinical History Vocal fold leukoplakia 08/02/2023 14:54 [facility] Gross Description A. Received fresh labelled with proper patient identification (initials B, C) and left true vocal cord lesion is a single pink-white tissue (0.4 x 0.2 x 0.1 cm). Submitted intact in A1. Danelle Rowley 07/31/2023 10:52 08/02/2023 14:54 [facility] Resident/Fell ow: Ghazala Mcconnell MD PhD 08/02/2023 14:54 [facility] Performing Lab [facility] 08/02/2023 14:54 [facility] Scanned Images 08/02/2023 14:54 EDT [facility] Tissue LARYNGEAL STRUCTURE / Unknown 07/31/2023 8:22 EDT 07/31/2023 9:35 EDT us Marcelino Godinez MD PATHOLOGY ORDERABLES F inal Result [facility] [address] [place] [address] documented in this encounter Visit Diagnoses Diagnosis [...] (only) 0841 (Rate Change - Provider: Candida Baltazar, CATHI) PRN Medication Order 07/29/2023 07/30/2023 07/31/2023 atropine [...] 07/18 documented in this encounter Care Teams Meat Loiner Relationship Specialty Start Date End Date Bianca Barbosa, KALIA [address] [place] [address] PCP - General Family Medicine - Primary Care 01/18/22 documented as of this encounter
--- OUTSIDE RECORDS SUMMARY | 2024-04-15 13:15 | XMS_ITS | Encounter Summary ---
Author Organization [facility] Address [address] [place] [address] Care Team Providers Care Lidar Analyst Name Role Phone Bianca Barbosa QUALITATIVE FIELD COORDINATOR Primary Care Provider [phone] Reason for Visit * Reason Onset Date Comments Discuss Surgery 07/30/2023 Encounter Details Date Type Department Care Team (Late st Contact Info) Description 07/30/2023 Telephone [facility]- [address] [phone] Marcelino Godinez MD [address] [place] [address], Level 4 [place] [address] Discuss Surgery Social History Tobacco [...] Telephone Encounter - Olivia Orellana - 07/30/2023 1358 EDT Voice Engineer contacted patient and confirmed the following: - [...] Info) Description 07/09/2024 10:20 EST Office Visit [facility] ENT- [address] [phone] Marcelino Godinez MD 111 [facility], Level 4 [place] [address] documented as of this encounter Visit Diagnoses Not on filedocumented in this encounter Care Teams Lidar Analyst Relationship Specialty Start Date End Date Bianca Barbosa NP [address] [place] [address] PCP - General Family Medicine - Primary Care 01/18/22 documented as of this encounter
--- OUTSIDE RECORDS SUMMARY | 2024-04-15 13:15 | XMS_ITS | Encounter Summary ---
Author Organization [facility] Address [address] [place] [address] Care Team Providers Care Production Team Member Name Role Phone Familia, Bianca Anastasiia DISEASE INTERVENTION SPECIALIST Primary Care Provider [phone] Encounter Details Date Type Department Care Team (Late st Contact Info) Description 02/26/2022 Lab Requisition [facility] Pathology & Laboratory Medicine - [address] [address] Biju Torres MD [address] [place] [address] Encounter for other general examination Social History [...] 07/09/2024 10:20 EST Office Visit [facility] ENT- [address] [phone] Marcelino Godinez MD [address] [place] [address], [facility] 4 [place] [phone] documented as of this encounter Procedures Procedure [...] explore management options, if applicable. 02/28/2022 10:33 [facility] Final Diagnosis A. NASAL SEPTUM, SEPTOPLASTY: - Fragments of cartilage consistent with nasal septum with no specific gross pathology features. Gross only. 02/28/2022 10:33 [facility] Attestation By the signature below, the attending physician certifies that they have 1) personally conducted a gross and/or microscopic examination of the described specimen(s), and/or personally interpreted the results of laboratory testing of the described specimen(s), and 2) personally rendered or confirmed the above diagnosis. 02/28/2022 10:33 [facility] at 1033 Clinical History Deviated nasal septum 02/28/2022 10:33 [facility] Gross Description A. Received in [...] only. VINITA MG(ASCP) 02/27/2022 8:02 02/28/2022 10:33 [facility] Performing Lab [facility] 02/28/2022 10:33 [facility] Scanned Images 02/28/2022 10:33 [facility] Tissue ENTIRE NASAL SEPTUM / Unknown 02/26/2022 12:03 EDT 02/26/2022 21:14 EDT us Biju Torres MD PATHOLOGY ORDERABLES Final Resul t [facility] [address] [place] [address] documented in this encounter Visit Diagnoses Diagnosis Encounter for other general examination documented in this encounter Care Teams Production Team Member Relationship Specialty Start Date End Date Bianca Barbosa, KALIA [address] [place], [place] [phone] PCP - General Family Medicine - Primary Care 01/18/22 documented as of this encounter
--- OUTSIDE RECORDS SUMMARY | 2024-04-15 13:15 | XMS_ITS | Encounter Summary ---
Author Organization [facility] Address [address] [place] [address] Care Team Providers Care Pigment Supplier Name Role Phone Bianca Barbosa IMAGE ARCHIVIST Primary Care Provider [phone] Reason for Visit * Reason Comments Vocal Cord Dysfunction * Referral (Routine) - Receiving Office to Obtain Authorization Specialty Diagnoses / Procedures [facility]erred To Contact Otolaryngology Diagnoses Other diseases of vocal cords Unspecified voice and resonance disorder Biju Torres MD Phone: tel: fax: Marcelino Godinez MD Phone: tel: fax: Referral ID Status Reason Start Date Expiration Date Visits Requested Visits Authorized [id number] Receiving Office to Obtain Authorization 1 1 Encounter Details Date Type Department Care Team (Late st Contact Info) Description 04/19/2023 8:00 EST Office Visit [facility] ENT- [address] [phone] Marcelino Godinez MD [address] [place] [address], Level 4 [place] [phone] Dysphonia (Primary Dx); Chronic laryngitis; Vocal fold [...] voice. He initially presented to Dr. [facility] otolaryngology in [facility] in late 2021 with 1 to [...] Info) Description 07/09/2024 10:20 EST Office Visit [facility] ENT- Main [place] [address] [place] [address] Marcelino Godinez MD [address] [place] [address], Level 4 [place] [address] documented as of this encounter Visit Diagnoses Diagnosis Dysphonia- Primary Chronic laryngitis Vocal fold leukoplakia Other diseases of vocal cords documented in this encounter Historical Medications * This list may reflect changes made after this encounter. rOPINIRole (REQUIP) 1 mg tablet Take 1 [...] Wheezing. added in this encounter Care Teams Pigment Supplier Relationship Specialty Start Date End Date Bainca Barbosa NP [address] [place] [address] PCP - General Family Medicine - Primary Care 01/18/22 documented as of this encounter
--- OUTSIDE RECORDS SUMMARY | 2024-04-15 13:15 | XMS_ITS | Encounter Summary ---
[place] [address] Care Team Providers Care Industrial Maintenance Manager Name Role Phone Bianca Barbosa APRN Primary [...] on filedocumented in this encounter Care Teams Industrial Maintenance Manager Relationship Specialty Start Date End Date Bianca Barbosa [place] [address] PCP - General Family Medicine 05/22/22 documented as of this encounter
--- OUTSIDE RECORDS SUMMARY | 2024-04-15 13:15 | XMS_ITS | Encounter Summary ---
Author Organization [facility] Address [address] [place] [address] Care Team Providers Care Agriculture Research Director Name Role Phone Bianca Barbosa MANAGER RECRUITING Primary Care Provider [phone] Encounter Details Date Type Department Care Team (Latest Contact Info) Description 07/24/2023 10:30 EST - 07/24/2023 23:59 EST Hospital Encounter [facility] Pre-Surgical Testing [address] [place] [address] Discharge Disposition: Home or Self Care Social [...] pick you up to assist with medication diamond picker from pharmacy, review of discharge instructions and surgical consult. We ask that your ride stay within 15 minutes of the hospital for diamond picker. CPAP/BiPAP Bring your CPAP or BiPAP machine in with you on the day of your surgery. Nail australian and Jewelry Remove all finger nail australian and makeup before surgery Remove all jewelry [...] Bring Crutches if needed. Use the Volumetric Android Ios Developer given to you by your surgeon or [...] campus of surgery. For Day of Surgery: [facility] [place]: [phone]; [facility] [place]; [phone]. Prior to Day of Surgery call: [phone]. Pre-op toll Free Number . More information can also be found on our website: [email or web address] documented in this encounter Plan of Treatment Upcoming Encounters Date Type Department Care Team (Late st Contact Info) Description 07/09/2024 10:20 EST Office Visit [facility] ENT- [address] [address] Marcelino Godinez MD 111 [facility], Level [address] [place] [phone] documented as of this encounter Visit Diagnoses Not on filedocumented in this encounter Historical Medications * This list may reflect changes made after this encounter. B.animalis,bifid, infantis,long (PROBIOTIC 4X ORAL) Take by mouth. Multivitamins with Minerals tablet tablet Take 1 Tablet by mouth daily. umeclidinium bromide (INCRUSE ELLIPTA INHALATION) Inhale 1 Puff as directed daily. atorvastatin (LIPITOR) 10 mg tablet Take 1 Tablet by mouth daily. AM fremanezumab-vfrm (AJOVY SYRINGE) 225 mg/1.5 mL syringe Inject 1.5 mL into the skin every 28 days. added in this encounter Care Teams Agriculture Research Director Relationship Specialty Start Date End Date Bianca Barbosa, KALIA [address] [place] [address] PCP - General Family Medicine - Primary Care 01/18/22 documented as of this encounter
--- OUTSIDE RECORDS SUMMARY | 2024-04-15 13:15 | XMS_ITS | Clinical Summary ---
Author Organization [facility] [place] [address] Care Team Providers Care Instructor Looping Name Role Phone Bianca Barbosa APRN Primary Care Provider Allergies Active Allergy Reactions Criticality Noted Date [...] Hepatitis C Screening 1980 Lipid Screening 1980 Tetanus/Diphtheria/Pertussis Vaccines (1 - Tdap) 12/26 Zoster vaccine (1 of 2) 2012 Advance Directive 2017 Covid-19 Vaccine (2023- season) 2024 Influenza (Flu) vaccine (1 o f 1 - Influenza standard series) 01/19/2024 Care Teams Instructor Looping Relationship Specialty Start Date End Date Bianca Barbosa, ARMORED CAR GUARD AND DRIVER [facility] [place] [address] PCP - General Family Medicine 05/22/22
--- OUTSIDE RECORDS SUMMARY | 2024-04-15 13:15 | XMS_ITS | Encounter Summary ---
Author Organization [facility] Address [address] [place] [address] Care Team Providers Care Pharmaceutical Sales Name Role Phone Familia, Bianca Laurent VEHICLE INSURANCE AGENT Primary Care Provider [phone] Encounter Details Date Type Department Care Team (Late st Contact Info) Description 06/04/2022 Lab Requisition [facility] Pathology & Laboratory Medicine - [address] [address] Biju Torres MD [address] [place] [address] Encounter for other general examination Social History [...] Office Visit [facility] ENT- [address] [address] Marcelino Godinez MD [address] [place] [address], [facility] 4 [place] [address] documented as of this encounter [...] explore management options, if applicable. 06/06/2022 8:59 [facility] Final Diagnosis A. LARYNX, LEFT TRUE VOCAL CORD, BIOPSY: - Squamous mucosa with mild chronic inflammation and subepithelial myxoid change. - No high grade dysplasia identified. 06/06/2022 8:59 [facility] Attestation By the signature below, the attending physician certifies that they have 1) personally conducted a gross and/or microscopic examination of the described specimen(s), and/or personally interpreted the results of laboratory testing of the described specimen(s), and 2) personally rendered or confirmed the above diagnosis. 06/06/2022 8:59 [facility] at 0859 Clinical History Change in voice 06/06/2022 8:59 [facility] Gross Description A. Received in formalin labelled with proper patient identification (initials B, C) and true vocal cord Bx L is a membranous pale canales tissue less than 0.1 cm in greatest dimension. Entirely submitted in A1 VINITA EM(ASCP) 06/04/2022 17:41 06/06/2022 8:59 EST [facility] Performing Lab [facility] 06/06/2022 8:59 [facility] Scanned Images 06/06/2022 8:59 [facility] Tissue ENTIRE LARYNX / Unknown 06/04/2022 10:48 EST 06/04/2022 17:30 EST us Biju Torres MD PATHOLOGY ORDERABLES Final Resul t [facility] [address] [place] [address] documented in this encounter Visit Diagnoses Diagnosis Encounter for other general examination documented in this encounter Care Teams Pharmaceutical Sales Relationship Specialty Start Date End Date Bianca Barbosa, KALIA [address] [place] [address] PCP - General Family Medicine - Primary Care 01/18/22 documented as of this encounter
--- OUTSIDE RECORDS SUMMARY | 2024-04-15 13:15 | XMS_ITS | Encounter Summary ---
Author Organization [facility] Address [address] [place] [address] Care Team Providers Care Chain Maker Hand Name Role Phone Bianca Barbosa RESERVOIR ENGINEER Primary Care Provider [phone] Reason for Visit * Reason Comments Post-OP Follow Up Encounter Details Date Type Department Care Team (Late st Contact Info) Description 08/08/2023 16:00 EDT Post-op Visit [facility]- [address] [id number] Marcelino Godinez MD 111 [facility], Level [address] [place] [address] Dysphonia (Primary Dx); Carcinoma in [...] He initially presented to Dr. Torres at [facility] otolaryngology in [facility] [...] tissue to evaluate for invasion. 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
--- OUTSIDE RECORDS SUMMARY | 2024-04-15 13:15 | XMS_ITS | Encounter Summary ---
Author Organization [facility] Address [address] [place] [address] Care Team Providers Care Gambreler Name Role Phone Bianca Barbosa FLOTATION OPERATOR Primary Care Provider [phone] Reason for Visit * Auth/Cert (Routine) Specialty Diagnoses / Procedures Referred By Jame garnica Referred To Contact Diagnoses Vocal fold leukoplakia Procedures SC LARGSC EXC [place]&/STRPG CORDS/EPIGL MCRSCP/TLSCP MICROLARYNGOSCOPY, DIRECT, WITH VOCAL CORD LESION EXCISION Referral ID Status Reason Start Date Expiration Date Visits Re quested Visits Authorized [id number] 07/18/2023 07/17/2024 1 1 Encounter Details Date Type Department Care Team (Late st Contact Info) Description 07/31/2023 5:42 EDT - 07/31/2023 9:53 EDT Hospital Encounter [facility] OR [address] [place] [address] Marcelino Godinez MD [address] [place] [address], [facility] 4 [place] [phone] Discharge Disposition: Home or Self Care Social [...] 07/31/2023 0611 EDT Body Mass Index 24.86 07/31/2023610 EDT [...] SERVICE DATE: 07/31/2023 SURGEON: Marcelino Godinez MD FINISHER MERCHANT PRODUCTS: RON HERRMANN MD PREOPERATIVE DIAGNOSIS: Left true [...] Info) Description 07/09/2024 10:20 EST Office Visit [facility] ENT- Main [address] [address] Marcelino Godinez MD [address] [place] [address], [facility] 4 [place] [phone] documented as of this encounter Procedures Procedure [...] management options, if applicable. 08/02/2023 14:54 EDT [facility] Final Diagnosis A. LARYNX, LEFT, SUBMITTED ''TRUE VOCAL CORD LESION'', BIOPSY: - Squamous cell carcinoma in situ. - Minimal subepithelial connective tissue to evaluate for invasion. 08/02/2023 14:54 T [facility] Diagnosis Comment Beamer Helper slides of this case were reviewed at the intradepartmental consultation conference. 08/02/2023 14:54 [facility] Attestation There was significant resident/fellow involvement in the diagnostic evaluation of this case. By the signature below, the attending physician certifies that they have personally conducted a gross and/or microscopic examination of the described specimens and rendered or confirmed the above diagnosis. 08/02/2023 14:54 [facility] at 1454 Clinical History Vocal fold leukoplakia 08/02/2023 14:54 T [facility] Gross Description A. Received fresh labelled with proper patient identification (initials B, C) and left true vocal cord lesion is a single pink-white tissue (0.4 x 0.2 x 0.1 cm). Submitted intact in A1. Danelle Rowley 07/31/2023 10:52 08/02/2023 14:54 T [facility] Resident/Fell ow: Ghazala Mcconnell MD PhD 08/02/2023 14:54 [facility] Performing Lab [facility] 08/02/2023 14:54 T [facility] Scanned Images 08/02/2023 14:54 T [facility] Tissue LARYNGEAL STRUCTURE / Unknown 07/31/2023 8:22 EDT 07/31/2023 9:35 EDT us Marcelino Godinez MD PATHOLOGY ORDERABLES F inal Result [facility] [address] [place] [address] documented in this encounter Visit Diagnoses Diagnosis [...] atropine 0.1 mg/mL syringe 0.5 mg 1 ceFAZolin (ANCEF) syringe 2 g 1 07/31/2023 [...] 07/18 documented in this encounter Care Teams Gambreler Relationship Specialty Start Date End Date Bianca Barbosa NP [address] [place] [address] PCP - General Family Medicine - Primary Care 01/18/22 documented as of this encounter
--- OUTSIDE RECORDS SUMMARY | 2024-04-15 13:15 | XMS_ITS | Encounter Summary ---
Author Organization [facility] [place] [address] Care Team Providers Care Barrel Marker Name Role Phone Bianca Barbosa APRN Primary Care Provider [phone] Reason for Visit * Reason Comments Skin Check * Consultation (Routine) - Closed Specialty Diagnoses / Procedures Referred By Jame garnica Referred To Contact Dermatology Diagnoses Personal history of other malignant neoplasm of skin Personal history of diseases of the skin and subcutaneous tissue Bianca Barbosa APRN [address] [place] [address] [facility] Dermatology [address] [place] [phone] Referral ID Status Reason Start Date Expiration Date Visits Re quested Visits Authorized [id number] Closed 05/01/2022 05/01/2023 1 1 Encounter Details Date Type Department Care Team (Late st Contact Info) Description 05/22/2022 9:30 AM EST Office Visit Dermatology at [address] [phone] Richie Stallworth MD [address] [place] [address], [facility] [place] [address] History of basal cell carcinoma; [...] carcinoma. His family has a farm in [place]. He lived for a [place] of years in [place]. He is now moved back to the [facility]. He was previously followed by Dr. Dougehrty who is his tester compressed gases in [place]. That while there he received 3 treatments [...] cream given to him by his prior tester compressed gases twice daily for 7 days, then off [...] keratosis documented in this encounter Care Teams Barrel Marker Relationship Specialty Start Date End Date [place] [address] PCP - General Family Medicine 05/22/22 documented as of this encounter
--- OUTSIDE RECORDS SUMMARY | 2024-04-15 13:15 | XMS_ITS | Encounter Summary ---
Author Organization [facility] Address [address] [place] [address] Care Team Providers Care Sausage Machine Operator Name Role Phone Bianca Barbosa EGG PACKER Primary Care Provider [phone] Reason for Visit * Auth/Cert (Routine) Specialty Diagnoses / Procedures [facility] Referred To Contact Diagnoses Vocal fold leukoplakia Procedures MO LARGSC EXC [place]&/STRPG CORDS/EPIGL MCRSCP/TLSCP MICROLARYNGOSCOPY, DIRECT, WITH VOCAL CORD LESION EXCISION Referral ID Status Reason Start Date Expiration Date Visits Re quested Visits Authorized [id number] 07/18/2023 07/17/2024 1 1 Encounter Details Date Type Department Care Team (Late st Contact Info) Description 07/31/2023 7:29 EDT Anesthesia Event [facility] [place] OR [address] [place], [place] [phone] Baron Walker MD MM [address] [address] Franco Benson CRNA [address] [address] Anesthesia Record Procedure Summary Procedure [...] and Staff Patient location during procedure: OR Resident/FRUIT WASHER: Franco Benson CRNA Performed: resident/FRUIT WASHER/AA Performed by: Franco Benson CRNA Authorized by: [...] with minimal volume to create seal. 5.0 FOOD CASHIER * Anesthesia Preprocedure Evaluation - Jarrett Strauss [...] Info) Description 07/09/2024 10:20 EST Office Visit [facility] ENT- [address] [address] Marcelino Godinez MD [address] [place] [address], [address] [place] [address] documented as of this encounter Procedures Procedure Name Priority Date/Time Associated Diagnosis Comments ANESTHESIA INTUBATION Routine 07/31/2023 7:39 EDT documented in this encounter Results * MO AN ELECTIVE ENDOTRACHEAL AIRWAY (07/31/2023 7:39 EDT) Narrative Franco Benson CRNA - 07/31/2023 7:39 EDT Franco Benson CRNA ? 07/31/2023 ??7:45 Airway Date/Time: 07/31/2023 7:39 Urgency: elective Airway not difficult General Information and Staff Patient location during procedure: OR Resident/FRUIT WASHER: Franco Benson CRNA Performed: resident/FRUIT WASHER/AA Performed by: Franco Benson, FRUIT WASHER Authorized by: Baron Walker MD MMM ?? [...] with minimal volume to create seal. 5.0 FOOD CASHIER Baron MENDEZ ANESTHESIA ORDERAB LES Final Result documented in this encounter Visit Diagnoses Not [...] mg documented in this encounter Care Teams Sausage Machine Operator Relationship Specialty Start Date End Date Bianca Barbosa NP [address] [place] [address] PCP - General Family Medicine - Primary Care 01/18/22 documented as of this encounter
== END 2024-04-15 13:32 ==
PROVIDERS: PCP Nurse Practitioner Family; Visit Provider Nurse Practitioner Family
DX: M13.841 Other specified arthritis, right hand (principal)
CPT/HCPCS: 73130

== ENCOUNTER → 2024-06-01 08:10 | Outpatient (BNVA) | payer MEDICARE, MEDICAID, SELFPAY | PROVIDERS: PCP Nurse Practitioner Family; Referring Provider Preventive Medicine Occupational Medicine; Visit Provider Psychiatry & Neurology Neurology | DX: G57.02 Lesion of sciatic nerve, left lower limb (principal); G56.02 Carpal tunnel syndrome, left upper limb; M53.3 Sacrococcygeal disorders, not elsewhere classified | CPT/HCPCS: 95885; 95887; 95912; 99215 ==

== ENCOUNTER → 2024-06-25 10:30 | Outpatient (BNVA) | payer MEDICARE, MEDICAID, SELFPAY | PROVIDERS: PCP Nurse Practitioner Family; Visit Provider Nurse Practitioner Gerontology | DX: R39.9 Unspecified symptoms and signs involving the genitourinary system (principal) | CPT/HCPCS: 51798; 99213 ==

== ENCOUNTER → 2024-10-13 08:15 | Outpatient (BNVA) | payer MEDICARE, MEDICAID, SELFPAY | PROVIDERS: PCP Nurse Practitioner Family; Referring Provider Nurse Practitioner Family; Visit Provider Psychiatry & Neurology Neurology | DX: G56.03 Carpal tunnel syndrome, bilateral upper limbs | CPT/HCPCS: 95886; 95887; 95908 ==

== ENCOUNTER → 2024-12-03 09:48 | Outpatient (BNVA) | payer MEDICARE, MEDICAID, SELFPAY | PROVIDERS: PCP Nurse Practitioner Family; Visit Provider Nurse Practitioner Adult Health | DX: G43.109 Migraine with aura, not intractable, without status migrainosus (principal); G43.009 Migraine without aura, not intractable, without status migrainosus | CPT/HCPCS: 99214 ==

== ENCOUNTER → 2024-12-15 10:01 | Outpatient (BNVA) | payer MEDICARE, MEDICAID, SELFPAY | PROVIDERS: PCP Nurse Practitioner Family; Visit Provider Nurse Practitioner Gerontology | DX: N40.1 Benign prostatic hyperplasia with lower urinary tract symptoms (principal); R39.9 Unspecified symptoms and signs involving the genitourinary system | CPT/HCPCS: 99213; 51798 ==

== ENCOUNTER 2024-12-15 10:35 | Outpatient (CLI) | payer MEDICARE, MEDICAID, SELFPAY ==
[2024-12-15 21:23] LABS: PSA, Screening 0.7 ng/mL (<=4.5)
== END 2024-12-15 10:36 | disposition home or self-care (01) ==
LOC: LBO 10:35
PROVIDERS: PCP Nurse Practitioner Family; Visit Provider Nurse Practitioner Gerontology
DX: N40.1 Benign prostatic hyperplasia with lower urinary tract symptoms (principal); R39.9 Unspecified symptoms and signs involving the genitourinary system
CPT/HCPCS: 36415; 84153